=== PATIENT | female | born 1985 | race Caucasian/White ===

== ENCOUNTER 2017-05-25 08:49 | Inpatient (IN) | payer OTHER ==
[2017-05-25 09:00] VITALS: BMI 34.6
[2017-05-25] MEDS ORDERED: CEFTRIAXONE 1,000 MG in DEXTROSE 5%-WATER - 50 ML IVPB ONE (09:47)
[2017-05-25] MEDS ORDERED: ONDANSETRON 4 MG/2 ML VIAL IVPB ONE (09:48)
[2017-05-25] MEDS ORDERED: SODIUM CHLORIDE 0.9% 1000 ML INFUS.BAG IV ONE (09:48)
[2017-05-25] MEDS ORDERED: morphine CARPU-JECT 4 MG/1 ML DISP.SYRIN IVPUSH ONE (09:48)
[2017-05-25] MEDS ORDERED: KETOROLAC TROMETHAMINE 60 MG/2 ML VIAL IVPB ONE (09:49)
--- NOTE | 2017-05-25 09:56 | PDOC ---
History of Present Illness - General History Source: Patient Exam Limitations: No Limitations - History of Present Illness Initial Comments: 05/25/17 09:51 Patient is a 31-year-old female, otherwise healthy, denies any significant medical history currently on no medication presents for evaluation of right ear pain, described as stabbing 10 out of 10. Patient states 2 weeks ago she went to the beach, did have slight pain to right ear prior to that however after attending the [place] pain became worse was seen by her PMD and told that she had no infection. Currently afebrile. Past Medical History: Denies. Allergies: No known allergies Medications: None Family History: Non-contributory Social History: Denies smoking, alcohol use, or IVDU Review of Systems GENERAL/CONSTITUTIONAL: No fever or chills. No weakness. No weight change. HEAD, EYES, EARS, NOSE AND THROAT: No change in vision. Right ear and face pain , no discharge. No sore throat. CARDIOVASCULAR: No chest pain or shortness of breath. RESPIRATORY: No cough, wheezing, or hemoptysis. GASTROINTESTINAL: No nausea, vomiting, diarrhea or constipation. No rectal bleeding. GENITOURINARY: No dysuria, frequency, or change in urination. MUSCULOSKELETAL: No joint or muscle swelling or pain. No neck or back pain. SKIN AND BREASTS: No rash or easy bruising. NEUROLOGIC: No headache, vertigo, loss of consciousness, or loss of sensation. PSYCHIATRIC: No depression or anxiety. ENDOCRINE: No increased thirst. No abnormal weight change. HEMATOLOGIC/LYMPHATIC: No anemia, easy bleeding, or history of blood clots. ALLERGIC/IMMUNOLOGIC: No hives or skin allergy. No latex allergy. Physical Exam: GENERAL: The patient is awake, alert, and fully oriented, in no acute distress. HEAD/FACE: Normal with no signs of trauma. Right-sided facial edema with erythema, painful to touch right frontal sinus and right ethmoid sinus EYES: Pupils equal, round and reactive to light, extraocular movements intact, sclera anicteric, conjunctiva clear. ENT: Erythematous and pustulant ear canal on right, left TM visible no erythema or edema, nares patent, oropharynx clear without exudates. Moist mucous membranes. No uvula deviation NECK: Normal range of motion, supple without lymphadenopathy, JVD, or masses. LUNGS: Breath sounds equal, clear to auscultation bilaterally. No wheezes, and no crackles. HEART: Regular rate and rhythm, normal S1 and S2 without murmur, rub or gallop. ABDOMEN: Soft, nontender, normoactive bowel sounds. No guarding, no rebound. No masses. No bruising or abrasions MUSCULOSKELETAL: Normal range of motion, no edema. No clubbing or cyanosis. No cords, erythema, or tenderness. No CVA Tenderness with fist. NEUROLOGICAL: Cranial nerves II through XII grossly intact. Normal speech, normal gait. SKIN: Warm, Dry, normal turgor, no rashes or lesions noted. Erythema to right side of face from forehead to chin. <Eboni Street - Last Filed: 05/25/17 12:26> <Desmond Veras - Last Filed: 05/25/17 12:52> - General Chief Complaint: Ear Problem Stated Complaint: EAR PROBLEM Time Seen by Provider: 05/25/17 09:24 Past History - Past Medical History Other medical history: PT DENIES - Immunization History Immunization Up to Date: Yes - Psycho/Social/Smoking Cessation Hx Anxiety: No Suicidal Ideation: No Smoking History: Never smoked Have you smoked in the past 12 months: No Information on smoking cessation initiated: No Hx Alcohol Use: No Drug/Substance Use Hx: No Substance Use Type: None <Eboni Street - Last Filed: 05/25/17 12:26> <Desmond Veras - Last Filed: 05/25/17 12:52> - Past Medical History Allergies/Adverse Reactions: Allergies Allergy/AdvReac Type Severity Reaction Status Date / Time No Known Allergies Allergy Verified 05/25/17 08:55 Home Medications: Ambulatory Orders NK [No Known Home Medication] 05/25/17 *Physical Exam - Vital Signs Last Vital Signs Temp Pulse Resp BP Pulse Ox 98.1 F 76 17 113/76 97 05/25/17 08:55 05/25/17 08:55 05/25/17 08:55 05/25/17 08:55 05/25/17 08:[address] <[address] - Last Filed: 05/25/17 12:26> - Vital Signs Last Vital Signs Temp Pulse Resp BP Pulse Ox 98.1 F 76 17 113/76 97 05/25/17 08:55 05/25/17 08:55 05/25/17 08:55 05/25/17 08:55 05/25/17 08:55 <Desmond Veras - Last Filed: 05/25/17 12:52> ED Treatment Course - RADIOLOGY Radiology Studies Ordered: Category Date Time Status SINUS CT W/O CONTRAST [CT] Stat CT Scan 05/25/17 09:50 Ordered <Eboni Street - Last Filed: 05/25/17 12:26> - LABORATORY CBC & Chemistry Diagram: 05/25/17 09:50 05/25/17 09:50 - ADDITIONAL ORDERS Additional order review: Laboratory Results 05/25/17 05/25/17 05/25/17 10:00 10:00 09:50 Sodium 138 Potassium 4.2 Chloride 106 Carbon Dioxide 26 Anion Gap 6 L BUN 11 D Creatinine 0.5 L D Creat Clearance w eGFR > 60 Random Glucose 95 Lactic Acid 1.5 Calcium 9.2 Total Bilirubin 0.4 AST 14 L D ALT 33 D Alkaline Phosphatase 83 Total Protein 7.4 Albumin 4.0 Urine Color Ltyellow Urine Appearance Slcloudy Urine pH 6.0 Urine Protein Negative Urine Glucose (UA) Negative Urine Ketones Negative Urine Blood 1+ H Urine Nitrite Negative Urine Bilirubin Negative Urine Urobilinogen Negative Ur Leukocyte Esterase Trace Urine RBC 1 Urine WBC 2 Ur Epithelial Cells Moderate Urine Mucus Rare Urine HCG, Qual Negative 05/25/17 09:50 RBC 4.56 MCV 89.9 MCHC 34.5 RDW 12.8 MPV 8.0 Neutrophils % 73.5 Lymphocytes % 20.1 D Monocytes % 5.5 Eosinophils % 0.7 D Basophils % 0.2 - Medications Given in the ED: ED Medications Discontinued Medications Generic Name Dose Route Start Last Admin Trade Name Chayq PRN Reason Stop Dose Admin Diphenhydramine HCl 50 mg 05/25/17 12:12 05/25/17 12:35 Benadryl Injection - IVPB 05/25/17 12:13 50 mg ONCE ONE Administration Ceftriaxone Sodium 1,000 mg/ 50 mls @ 100 mls/hr 05/25/17 09:47 05/25/17 10:28 Dextrose IVPB 05/25/17 10:16 100 mls/hr ONCE ONE Administration Famotidine/Sodium Chloride 50 mls @ 100 mls/hr 05/25/17 12:12 05/25/17 12:35 Pepcid 20 Mg Premixed Ivpb - IVPB 05/25/17 12:41 100 mls/hr ONCE ONE Administration Famotidine/Sodium Chloride 50 mls @ 100 mls/hr 05/25/17 12:13 05/25/17 12:35 Pepcid 20 Mg Premixed Ivpb - IVPB 05/25/17 12:42 Not Given ONCE ONE Ketorolac Tromethamine 30 mg 05/25/17 09:49 05/25/17 10:20 Toradol Injection - IVPB 05/25/17 09:50 30 mg ONCE ONE Administration Methylprednisolone Sodium Succinate 125 mg 05/25/17 12:12 05/25/17 12:35 Solu-Medrol - IVPB 05/25/17 12:13 125 mg ONCE ONE Administration Morphine Sulfate 4 mg 05/25/17 09:48 05/25/17 10:25 Morphine Injection - IVPUSH 05/25/17 09:49 4 mg ONCE ONE Administration Ondansetron HCl 4 mg 05/25/17 09:48 05/25/17 10:15 Zofran Injection IVPB 05/25/17 09:49 4 mg ONCE ONE Administration Sodium Chloride 1,000 ml 05/25/17 09:48 05/25/17 10:20 Normal Saline - IV 05/25/17 09:49 1,000 ml ONCE ONE Administration <Desmond Veras - Last Filed: 05/25/17 12:52> Medical Decision Making - Medical Decision Making 05/25/17 10:01 A/P: Patient with right otitis externa, with facial cellulitis will be sent to main emergency department for higher level of care under the care of Dr. Veras. Plan: Saline lock, CBC, CMP, lactic acid Saline bolus CT sinuses Blood cultures, urinalysis, urine , and urine culture Zofran 4 mg IV, Rocephin 1 g, morphine 4 mg IV, Toradol 30 mg IV. Patient was initially triaged to [facility]. After review of the history of present illness and physical examination by Nurse Practitioner, the patient was transferred to the main ED for higher lever of care. The patient is medically stable for transfer. 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
[2017-05-25] MEDS ORDERED: ONDANSETRON 4 MG/2 ML VIAL ONE (10:14)
[2017-05-25] MEDS ORDERED: KETOROLAC TROMETHAMINE 30 MG/1 ML VIAL ONE (10:14)
[2017-05-25] MEDS ORDERED: morphine CARPU-JECT 4 MG/1 ML DISP.SYRIN ONE (10:14)
[2017-05-25] MEDS ORDERED: CEFTRIAXONE 50 ML ONE (10:15)
[2017-05-25 10:18] LABS: BASOPHIL 0.2 % (0-2.0); EOSINOPHIL 0.7 % (0-4.5); MCHC 34.5 g/dl (32.0-36.0); MEAN CELL VOLUME 89.9 fl (80-96); NEUTROPHILS 73.5 % (42.8-82.8); PLATELET COUNT 376 K/MM3 (134-434); RDW 12.8 % (11.6-15.6); WHITE BLOOD COUNT 9.4 K/mm3 (4.0-10.0)
[2017-05-25 10:20] LABS: URINE APPEARANCE SLCLOUDY; URINE BILIRUBIN NEGATIVE (NEGATIVE); URINE BLOOD 1+ (NEGATIVE); URINE COLOR LTYELLOW; URINE GLUCOSE (UA) NEGATIVE (NEGATIVE); URINE KETONE NEGATIVE (NEGATIVE); URINE LEUK ESTERASE TRACE (NEGATIVE); URINE NITRITE NEGATIVE (NEGATIVE); URINE PROTEIN NEGATIVE (NEGATIVE); URINE UROBILINOGEN NEGATIVE mg/dL (0.2-1.0)
[2017-05-25 10:22] LABS: URINE MUCUS RARE; URINE RBC 1 /hpf (0-3); URINE WBC 2 /hpf (3-5)
[2017-05-25 10:48] LABS: ALK PHOS 83 U/L (45-117); ANION GAP 6 (8-16); BILIRUBIN,TOTAL 0.4 mg/dL (0.2-1.0); CALCIUM 9.2 mg/dL (8.5-10.1); CO2 26 mmol/L (21-32); CREATININE 0.5 mg/dL (0.55-1.02); GLUCOSE,RANDOM 95 mg/dL (74-106); SGOT/AST 14 U/L (15-37); SGPT/ALT 33 U/L (12-78); TOT PROT 7.4 g/dl (6.4-8.2)
[2017-05-25] MEDS ORDERED: FAMOTIDINE 20 MG/50 ML IVPB 50 ML IVPB ONE ×3 (12:12→12:13)
[2017-05-25] MEDS ORDERED: methylPREDNISolone NA SUCC 125 MG/2 ML VIAL IVPB ONE (12:12)
[2017-05-25] MEDS ORDERED: methylPREDNISolone NA SUCC 125 MG/2 ML VIAL ONE ×2 (12:13→12:18)
[2017-05-25] MEDS ORDERED: ALBUTEROL SO4 0.083% IH SOL 2.5 MG/3 ML VIAL.NEB. NEB ONE ×2 (12:42→12:44)
[2017-05-25] MEDS ORDERED: EPINEPHrine/PF 1 MG/1 ML (1:1,000) AMPULE ONE (12:43)
[2017-05-25] MEDS ORDERED: CIPROFLOXACIN 400 MG/D5W 200 ML IVPB ONE (12:44)
[2017-05-25] MEDS ORDERED: CLINDAMYCIN PHOSPHATE 600 MG/4 ML VIAL ONE (12:55)
--- NOTE | 2017-05-25 13:50 | HP ---
CHIEF COMPLAINT: EAR PAIN PCP: NONE HISTORY OF PRESENT ILLNESS: 31 Yo F with no significant PMhx presents with two week history of ear pain. Pain started 2 weeks ago and was dull in nature with minor hearing loss. Pain has progressed to become stabbing 10/10 pain that radiates to right side of face. Pain is worse with palpation and no alleviating factors. It is associated with hearing loss. She states she can still hear but sounds are muffled. She had gone to [address] [place] [address] on Friday (05/21/17) and told she did not have infection and no treatment was initiated. She does endorses subjective fevers, chills and diaphoresis. There was some discussion in previous notes about going to the beach last week but she states she did not go in water she just wet her feet, therefore unsure of clinical significance. She denies CP,SOB, palpitations, abd.pain, N/V, or urinary symptoms. ER course was notable for: (1)Given Ceftriaxone x1 with adverse rxn.(SOB and generalized hives) --> given solumedrol 125mg IV and albuterol (2)ID consulted and Abx switched to Ciprofloxacin 400mg IV (3) Recent Travel: Denies PAST MEDICAL HISTORY: NONE PAST SURGICAL HISTORY: Right eye surgery 2 yrs ago (unclear as to what surgery or for what) Social History: Smoking: Never smoked Alcohol:denies Drugs: denies Family History: Allergies ceftriaxone sodium [From Rocephin] Allergy (Severe, Verified 05/25/17 13:18) Hives HOME MEDICATIONS: Home Medications Medication Instructions Recorded NK [No Known Home Medication] 05/25/17 REVIEW OF SYSTEMS CONSTITUTIONAL: chills, diaphoresis Absent: fever, , generalized weakness, malaise, loss of appetite, weight change HEENT: ear pain & Decreased hearing of Right ear Absent: rhinorrhea, nasal congestion, throat pain, throat swelling, difficulty swallowing, mouth swelling, , eye pain, visual changes CARDIOVASCULAR: Absent: chest pain, syncope, palpitations, irregular heart rate, lightheadedness , peripheral edema RESPIRATORY: Absent: cough, shortness of breath, dyspnea with exertion, orthopnea, wheezing, stridor, hemoptysis GASTROINTESTINAL: Absent: abdominal pain, abdominal distension, nausea, vomiting, diarrhea, constipation, melena, hematochezia GENITOURINARY: Absent: dysuria, frequency, urgency, hesitancy, hematuria, flank pain, genital pain MUSCULOSKELETAL: Absent: myalgia, arthralgia, joint swelling, back pain, neck pain SKIN: Absent: rash, itching, pallor HEMATOLOGIC/IMMUNOLOGIC: Absent: easy bleeding, easy bruising, lymphadenopathy, frequent infections ENDOCRINE: Absent: unexplained weight gain, unexplained weight loss, heat intolerance, cold intolerance NEUROLOGIC: Absent: headache, focal weakness or paresthesias, dizziness, unsteady gait, seizure, mental status changes, bladder or bowel incontinence PSYCHIATRIC: Absent: anxiety, depression, suicidal or homicidal ideation, hallucinations. PHYSICAL EXAMINATION Vital Signs - 24 hr 05/25/17 13:30 Pulse Rate [ 76 Apical] Respiratory 22 Rate Blood Pressure 121/73 [Left Arm] O2 Sat by Pulse 97 Oximetry (%) GENERAL: AAOx3. mild distress HEAD: AT/NC. Right sided facial erythema-Improved. EYES: PERRLA,EOMI sclera anicteric, conjunctiva clear. No lid lag. EARS, NOSE, THROAT: Right ear with erythema and swelling. , nares patent, oropharynx clear without exudates. Moist mucous membranes. NECK:decreased ROM, supple without lymphadenopathy, JVD, or masses. LUNGS: CTAB. No wheezes, and no crackles. No accessory muscle use. HEART: RRR, normal S1 and S2 without murmur, rub or gallop. ABDOMEN: Soft, nontender, not distended, normoactive bowel sounds, no guarding, no rebound, no masses. No hepatomegaly or splenomegaly. MUSCULOSKELETAL: Normal range of motion at all joints. No bony deformities or tenderness. No CVA tenderness. UPPER EXTREMITIES: 2+ pulses, warm, well-perfused. No cyanosis. No clubbing. No peripheral edema. LOWER EXTREMITIES: 2+ pulses, warm, well-perfused. No calf tenderness. No peripheral edema. NEUROLOGICAL: Cranial nerves II-XII intact. Normal speech.gait not observed. PSYCHIATRIC: Cooperative. Good eye contact. Appropriate mood and affect. SKIN: facial erythema from midline of face to right ear. ASSESSMENT/PLAN: 31 yo F with no significant pmhx admitted to med-surg for facial cellulitis. Problem List - Problem (1) Facial cellulitis Assessment/Plan: * ID consult appreciated. * Will give 200mg IV Ciprofloxacin Q12h * She had allergic rxn of hives and SOB with Ceftriaxone and received 125 mg IV solumedrol and Albuterol In ED * Facial redness has improved somewhat. * Will repeat CBC and BMP in AM Visit type - Emergency Visit Emergency Visit: Yes ED Registration Date: 05/25/17 Care time: The patient presented to the Emergency Department on the above date and was hospitalized for further evaluation of their emergent condition. - New Patient This patient is new to me today: Yes Date on this admission: 05/26/17 - Critical Care Critical Care patient: No
[2017-05-25] MEDS ORDERED: ACETAMINOPHEN INJECTION 100 ML IVPB ONE (13:52)
[2017-05-25] MEDS ORDERED: ACETAMINOPHEN 1000 MG/100 ML VIAL (NON FORMULARY) IVPB ONE (13:52)
--- NOTE | 2017-05-25 14:15 | CONSULT ---
Consult Consult Specialty:: INFECTIOUS DISEASE Reason for Consultation:: Ear pain possible Otitis - History of Present Illness Chief Complaint: Rt ear pain with decreased hearing History of Present Illness: 31 y.o. female presenting with severe Rt ear pain that began 2 weeks ago. Patient (bhutanese-speaking, history obtained via translation) states that pain has gotten worse and she is able to hear less from that side. She went to outpatient urgent care facility but was not prescribed anything. She reports going to the beach one week ago but symptoms began prior to that. Pt denies any fever, chills, headache, visual disturbance. In ER patient was given a dose of Ceftriaxone but developed hives noted on face and c/o shortness of breath. - History Source History Provided By: Patient, Family Member Limitations to Obtaining History: No Limitations - Past Medical History ...: No (IUD) ENT: Yes: Other Dermatology: Yes: Other (hives noted post dose of Ceftriaxone) - Alcohol/Substance Use Hx Alcohol Use: No - Smoking History Smoking history: Never smoked Have you smoked in the past 12 months: No - Social History ADL: Independent Home Medications - Allergies Allergies/Adverse Reactions: Allergies Allergy/AdvReac Type Severity Reaction Status Date / Time ceftriaxone sodium Allergy Severe Hives Verified 05/25/17 13:18 [From Rocephin] - Home Medications Home Medications: Ambulatory Orders NK [No Known Home Medication] 05/25/17 Review of Systems - Review of Systems HENT: reports: Ear Pain (Right ear, with decreased hearing), Other (no dental pain) Neck: reports: No Symptoms Cardiovascular: reports: No Symptoms Gastrointestinal: reports: No Symptoms Genitourinary: reports: No Symptoms Breasts: reports: No Symptoms Reported Physical Exam Vital Signs: Vital Signs Temperature 98.1 F 05/25/17 08:55 Pulse Rate 72 05/25/17 13:47 Respiratory Rate 16 05/25/17 13:47 Blood Pressure 121/73 05/25/17 13:47 O2 Sat by Pulse Oximetry (%) 100 05/25/17 13:47 Constitutional: Yes: Other HENT: Yes: Other (Rt ear without clear purulent drainage or erythema. No external lesions) Neck: Yes: Supple Cardiovascular: Yes: Regular Rate and Rhythm Respiratory: Yes: CTA Bilaterally Gastrointestinal: Yes: WNL, Normal Bowel Sounds Integumentary: Yes: Other (mild Rt facial edema/hives) Imaging - Results Cat Scan: Report Reviewed Problem List - Problems (1) Otitis Code(s): H66.90 - OTITIS MEDIA, UNSPECIFIED, UNSPECIFIED EAR (2) Allergic reaction caused by a drug Code(s): T78.40XA - ALLERGY, UNSPECIFIED, INITIAL ENCOUNTER (3) Hives Code(s): L50.9 - URTICARIA, UNSPECIFIED Assessment/Plan - suggest Cipro 400 mg IV Q12h for now - follow up culture results - monitor for worsening allergic symptoms Pt will be followed up by Dr Johnson
--- NOTE | 2017-05-25 18:57 | PN ---
Teaching Attending Note Name of Resident: Dean Brito ATTENDING PHYSICIAN STATEMENT I saw and evaluated the patient. I reviewed the resident's note and discussed the case with the resident. I agree with the resident's findings and plan as documented. SUBJECTIVE: Patient is c/o having right sided facial pain, having difficulty with chewing her food. OBJECTIVE: Vital Signs Temperature 98.4 F 05/25/17 16:54 Pulse Rate 81 05/25/17 16:54 Respiratory Rate 20 05/25/17 16:54 Blood Pressure 107/79 05/25/17 16:54 O2 Sat by Pulse Oximetry (%) 94 L 05/25/17 16:54 CBCD WBC 9.4 K/mm3 (4.0-10.0) D 05/25/17 09:50 RBC 4.56 M/mm3 (3.60-5.2) 05/25/17 09:50 Hgb 14.1 GM/dL (10.7-15.3) 05/25/17 09:50 Hct 41.0 % (32.4-45.2) 05/25/17 09:50 MCV 89.9 fl (80-96) 05/25/17 09:50 MCHC 34.5 g/dl (32.0-36.0) 05/25/17 09:50 RDW 12.8 % (11.6-15.6) 05/25/17 09:50 Plt Count 376 K/MM3 (134-434) 05/25/17 09:50 MPV 8.0 fl (7.5-11.1) 05/25/17 09:50 CMP Sodium 138 mmol/L (136-145) 05/25/17 09:50 Potassium 4.2 mmol/L (3.5-5.1) 05/25/17 09:50 Chloride 106 mmol/L (98-107) 05/25/17 09:50 Carbon Dioxide 26 mmol/L (21-32) 05/25/17 09:50 Anion Gap 6 (8-16) L 05/25/17 09:50 BUN 11 mg/dL (7-18) D 05/25/17 09:50 Creatinine 0.5 mg/dL (0.55-1.02) L D 05/25/17 09:50 Creat Clearance w eGFR > 60 (>60) 05/25/17 09:50 Random Glucose 95 mg/dL (74-106) 05/25/17 09:50 Calcium 9.2 mg/dL (8.5-10.1) 05/25/17 09:50 Total Bilirubin 0.4 mg/dL (0.2-1.0) 05/25/17 09:50 AST 14 U/L (15-37) L D 05/25/17 09:50 ALT 33 U/L (12-78) D 05/25/17 09:50 Alkaline Phosphatase 83 U/L (45-117) 05/25/17 09:50 Total Protein 7.4 g/dl (6.4-8.2) 05/25/17 09:50 Albumin 4.0 g/dl (3.4-5.0) 05/25/17 09:50 Current Medications Generic Name Dose Route Start Last Admin Trade Name Freq PRN Reason Stop Dose Admin Enoxaparin Sodium 40 mg 05/26/17 10:00 Lovenox - SQ DAILY CARLIE Ciprofloxacin/Dextrose 200 mls @ 200 mls/hr 05/25/17 22:00 Cipro 400 Mg Premix Ivpb (Restricted To Id) IVPB BID CARLIE Vancomycin HCl 250 mls @ 250 mls/hr 05/25/17 22:00 Vancomycin (Pre-Docked) IVPB BID [facility] Protocol Neomycin/Polymyxin/Hydrocortisone 4 drop 05/25/17 18:00 Cortisporin Otic Solution - AD Q6HPO [facility] Home Medications Medication Instructions Recorded NK [No Known Home Medication] 05/25/17 HEENT: right sided facial swelling. Rest PE: as per resident's note. ASSESSMENT AND PLAN: 31 yo F with no significant pmhx admitted to med-surg for facial cellulitis. # Acute Facial cellulitis with otitis media; ID consult appreciated. ; Cipro 400mg IV Ciprofloxacin Q12h ; Cortisporin otic ear drops 4 drops 4x per day. Patient had a allergic rxn post Rocephin IV in ED. developed hives and SOB. Given 125 mg IV solumedrol and Albuterol In ED, ENT consult Dr.Tom Tinsley # Acute allergic reaction to IV Rocephin: Solu medrol 40mg q8 IV, banadryl prn. # Acute Otitis Media on Cortisporin otic 4drops 4x per day. DVT Px: Lovenox
[2017-05-25] MEDS: VANCOMYCIN 1 GRAM (PRE-DOCKED) 250 ML IVPB SCH (21:26)
[2017-05-25] MEDS: SODIUM CHLORIDE 0.45% 1,000 ML IV SCH (21:26)
[2017-05-25] MEDS ORDERED: CIPROFLOXACIN 200 MG/D5W 100 ML IVPB SCH (22:00)
[2017-05-25] MEDS ORDERED: CIPROFLOXACIN 400 MG/D5W 200 ML IVPB SCH (22:00)
[2017-05-26] MEDS: NEOMYCIN/POLYMYXN/HC OTIC SOLUTION 10 ML BOTTLE AD SCH ×5 (00:41→19:18)
[2017-05-26] MEDS: methylPREDNISolone NA SUCC 40 MG/1 ML VIAL IVPB SCH ×3 (01:00→17:52)
[2017-05-26] MEDS: AZTREONAM 1 GM in DEXTROSE 5%-WATER - 50 ML IVPB SCH ×3 (01:38→17:35)
[2017-05-26] MEDS ORDERED: PT OWN MED DRAWER 7, Y5N ONE ×3 (06:01→16:37)
[2017-05-26 07:54] LABS: BASOPHIL 0.1 % (0-2.0); MCHC 34.5 g/dl (32.0-36.0); MEAN CELL VOLUME 89.8 fl (80-96); MEAN PLT VOLUME 8.3 fl (7.5-11.1); NEUTROPHILS 90.2 % (42.8-82.8); PLATELET COUNT 361 K/MM3 (134-434); RDW 12.9 % (11.6-15.6); WHITE BLOOD COUNT 13.4 K/mm3 (4.0-10.0)
[2017-05-26 08:18] LABS: ALBUMIN 3.3 g/dl (3.4-5.0); ANION GAP 6 (8-16); CALCIUM 8.6 mg/dL (8.5-10.1); CO2 25 mmol/L (21-32); CREATININE 0.5 mg/dL (0.55-1.02); GLUCOSE,RANDOM 132 mg/dL (74-106); PHOSPHOROUS 3.2 mg/dL (2.5-4.9); SGOT/AST 14 U/L (15-37); SGPT/ALT 40 U/L (12-78)
[2017-05-26 08:20] LABS: ALK PHOS 74 U/L (45-117); BILIRUBIN,TOTAL 0.7 mg/dL (0.2-1.0); TOT PROT 6.3 g/dl (6.4-8.2)
[2017-05-26] MEDS ORDERED: ACETAMINOPHEN 325 MG TABLET (FP) PO ONE (08:36)
--- NOTE | 2017-05-26 08:51 | PN ---
Physical Exam: SUBJECTIVE: Patient seen and examined this AM. Still complains of R ear pain, states R facial pain has improved. No CP, no SOB, no fevers, no chills. OBJECTIVE: Vital Signs Period Temp Pulse Resp BP Sys/Rocha Pulse Ox Last 24 Hr 98.4 F-98.7 F 66-81 16-22 105-121/53-79 94-100 GENERAL: AAO x 3, NAD HEENT: PERRLA, EOMi, TTP in L jaw, improved redness + swelling of face R EAR: Erythematous, inflammed tympanic membranes, tender on exam L Ear: Clear tympanic membrane, no bulging, no redness CV: S1, S2, RRR, no murmur LUNG: CTABL, no labored breathing MSK: 2+ pulses, no edema Neuro: CN 2-12 intact, sensation equal/intact face + body, MSK 5/5, reflexes 2+ Laboratory Results - last 24 hr 05/26/17 05/26/17 06:00 06:00 WBC 13.4 H D RBC 4.22 Hgb 13.1 Hct 37.9 MCV 89.8 MCH 31.0 MCHC 34.5 RDW 12.9 Plt Count 361 MPV 8.3 Neutrophils % 90.2 H D Lymphocytes % 8.3 D Monocytes % 1.4 L Eosinophils % 0.0 D Basophils % 0.1 Sodium 138 Potassium 4.1 Chloride 107 Carbon Dioxide 25 Anion Gap 6 L BUN 7 D Creatinine 0.5 L Creat Clearance w eGFR > 60 Random Glucose 132 H D Calcium 8.6 Phosphorus 3.2 Magnesium 2.0 Total Bilirubin 0.7 D AST 14 L ALT 40 D Alkaline Phosphatase 74 Total Protein 6.3 L Albumin 3.3 L Active Medications Generic Name Dose Route Start Last Admin Trade Name Freq PRN Reason Stop Dose Admin Diphenhydramine HCl 25 mg 05/25/17 19:08 Benadryl Injection - IVPUSH Q6H PRN FOR ITCHING Enoxaparin Sodium 40 mg 05/26/17 10:00 Lovenox - SQ DAILY CARLIE Vancomycin HCl 250 mls @ 250 mls/hr 05/25/17 22:00 05/25/17 21:26 Vancomycin (Pre-Docked) IVPB 250 mls/hr BID CARLIE Administration Protocol Sodium Chloride 1,000 mls @ 125 mls/hr 05/25/17 19:15 05/25/17 21:26 1/2 Normal Saline IV 125 mls/hr ASDIR CARLIE Administration Aztreonam 1 gm/ Dextrose 50 mls @ 100 mls/hr 05/26/17 02:00 05/26/17 01:38 IVPB 100 mls/hr Q8H-IV CARLIE Administration Protocol Methylprednisolone Sodium Succinate 40 mg 05/26/17 02:00 05/26/17 01:00 Solu-Medrol - IVPB 40 mg Q8H-IV CARLIE Administration Neomycin/Polymyxin/Hydrocortisone 4 drop 05/25/17 18:00 05/26/17 05:45 Cortisporin Otic Solution - AD 4 drop Q6HPO CARLIE Administration ASSESSMENT/PLAN: Pt is a 31yo F without significant PMHx who presented with 2 weeks of 10/10 stabbing R ear pain w/ R sided facial swelling and redness. She had gone to the beach which had made her ear pain worse. CT soft tissue in ER showed minimal soft tissue swelling over R face without abscess. She was given Ceftriaxone in the ED which caused her to have hievs and SOB. She was later switched to Cipro + Vanc. # Acute Otitis Infection - Will need to do proper examination to assess tympanic membrane - In ED she had erythematous purulent canal - Continue Corticosporin ear drops - Await ENT reccs # Facial Cellulitis - Improved - Continue Ciprofloxacin 400mg IV Q12 - Continue Vancomycin 1g IV Q12 - F/u ID reccs # FEN - Fluids: None - Electrolytes: Monitor - Nutrition: Chopped diet # Prophylaxis - DVT: Lovenox 40mg SQ QD - good renal function - GI: Not indicated - Deconditioning: Ambulating # Disposition - New white count, continue abx - Await ENT reccs, d/c when pain improves Visit type - Emergency Visit Emergency Visit: No - New Patient This patient is new to me today: No - Critical Care Critical Care patient: No
[2017-05-26] MEDS: SODIUM CHLORIDE 0.45% 1,000 ML IV SCH ×2 (08:54→19:43)
[2017-05-26] MEDS: ENOXAPARIN NA (PORCINE) 40 MG/0.4 ML DISP.SYRIN SQ SCH (09:01)
[2017-05-26] MEDS: VANCOMYCIN 1 GRAM (PRE-DOCKED) 250 ML IVPB SCH ×2 (09:02→22:57)
--- NOTE | 2017-05-26 12:13 | PN ---
Progress Note, Physician History of Present Illness: patient evaluated family in room patient mentions that the swelling is much better still has pain when pinna is retracted according to the patient she does feel much better - Current Medication List Current Medications: Active Medications Diphenhydramine HCl (Benadryl Injection -) 25 mg IVPUSH Q6H PRN PRN Reason: FOR ITCHING Enoxaparin Sodium (Lovenox -) 40 mg SQ DAILY [facility] Last Admin: 05/26/17 09:01 Dose: 40 mg Vancomycin HCl (Vancomycin (Pre-Docked)) 250 mls @ 250 mls/hr IVPB BID [facility]IE PRN Reason: Protocol Last Admin: 05/26/17 09:02 Dose: 250 mls/hr Sodium Chloride (1/2 Normal Saline) 1,000 mls @ 125 mls/hr IV ASDIR [facility] Last Admin: 05/26/17 08:54 Dose: 125 mls/hr Aztreonam 1 gm/ Dextrose 50 mls @ 100 mls/hr IVPB Q8H-IV [facility]LIE PRN Reason: Protocol Last Admin: 05/26/17 10:20 Dose: 100 mls/hr Methylprednisolone Sodium Succinate (Solu-Medrol -) 40 mg IVPB Q8H-IV [facility] Last Admin: 05/26/17 09:02 Dose: 40 mg Neomycin/Polymyxin/Hydrocortisone (Cortisporin Otic Solution -) 4 drop AD Q6HPO [facility] Last Admin: 05/26/17 05:45 Dose: 4 drop - Objective Vital Signs: Vital Signs Temperature 98.6 F 05/26/17 09:00 Pulse Rate 80 05/26/17 09:00 Respiratory Rate 17 05/26/17 09:00 Blood Pressure 111/64 05/26/17 09:00 O2 Sat by Pulse Oximetry (%) 92 L 05/26/17 09:00 Constitutional: Yes: No Distress, Calm, Obese HENT: Yes: Other (rt ear pain facial cellulitits) Cardiovascular: Yes: Regular Rate and Rhythm Respiratory: Yes: Regular, CTA Bilaterally Gastrointestinal: Yes: Normal Bowel Sounds, Soft Musculoskeletal: Yes: WNL Extremities: Yes: WNL Integumentary: Yes: Erythema (facial cellulitits) Neurological: Yes: Alert, Oriented Psychiatric: Yes: Alert Labs: CBC, BMP 05/26/17 06:00 05/26/17 06:00 Assessment/Plan Problem List - Problems (1) Otitis Code(s): H66.90 - OTITIS MEDIA, UNSPECIFIED, UNSPECIFIED EAR (2) Allergic reaction caused by a drug Code(s): T78.40XA - ALLERGY, UNSPECIFIED, INITIAL ENCOUNTER (3) Hives Code(s): L50.9 - URTICARIA, UNSPECIFIED 4 facial cellulitits rt side plan we will continue current mgmt await for ent to see the patient continue abx rest as per primary
[2017-05-26] MEDS ORDERED: ACETAMINOPHEN 325 MG TABLET (FP) PO PRN (17:32)
--- NOTE | 2017-05-26 18:15 | CON.ENT ---
Consult Consult Specialty:: ENT Referred by:: Dr. Brito Reason for Consultation:: hearing loss, ear pain - History of Present Illness Chief Complaint: right ear pain History of Present Illness: 31 yo F admitted, c/o right ear pain and hearing loss on topical eardrops but pain persists on systemic antibiotics symptoms for ~2 weeks but did not seek medical attention until presented to [facility] 1 day ago. nasal congestion, does not recall specific sinus infections facial pain present - History Source History Provided By: Patient, Medical Record Limitations to Obtaining History: No Limitations - Past Medical History ...: No (IUD) ENT: Yes: Other Dermatology: Yes: Other (hives noted post dose of Ceftriaxone) - Alcohol/Substance Use Hx Alcohol Use: No - Smoking History Smoking history: Never smoked Have you smoked in the past 12 months: No - Social History ADL: Independent Home Medications - Allergies Allergies/Adverse Reactions: Allergies Allergy/AdvReac Type Severity Reaction Status Date / Time ceftriaxone sodium Allergy Severe Hives Verified 05/25/17 13:18 [From Rocephin] - Home Medications Home Medications: Ambulatory Orders NK [No Known Home Medication] 05/25/17 Physical Exam-ENT Vital Signs: Vital Signs Temperature 97.8 F 05/26/17 14:39 Pulse Rate 77 05/26/17 14:39 Respiratory Rate 20 05/26/17 14:39 Blood Pressure 119/65 05/26/17 14:39 O2 Sat by Pulse Oximetry (%) 92 L 05/26/17 09:00 Constitutional: Yes: Well Nourished, No Distress, Calm Head: Yes: WNL Face: Yes: WNL Eyes: Yes: WNL Nose: Yes: Septum Deviated Nasal Passage: Yes: Other (nasal endoscopy: inferior turbinates mild edema, middle meati narrow, no pus or polyp, middle turbinates sl edema; superior turbinates/meati not visualized, sphenoethmoid recesses not visualized) Oral/Pharynx: Yes: WNL Outer Ear: Yes: Drainage Ear Canal: Yes: Drainage (right ear canal clear to serous drainage) Tympanic Membrane: Yes: Other (not visualized right because of medial fluid and canal swelling) Neck: Yes: WNL Respiratory: Yes: WNL Neurological: Yes: Alert, Oriented Imaging - Results Cat Scan: Report Reviewed, Image Reviewed (CT scan of sinuses: +deviated septum ; left maxillary sinusitis with mucoperiosteal thickening. coronal views demonstrate edema of right external auditory canal, also fluid middle ear and masotid right (less developed)) Assessment and Plan-Medical Impression: Impression: right ear pain and hearing loss right otitis externa and otorrhea, also otomastoiditis on CT scan because of ear canal narrowing eardrops are less effective ear wick placed continue eardrops remove wick in 2-3 days as pain improves will need audiogram in office after discharge to assess hearing levels, assume most of her hearing loss is related to current infection and fluid/ swelling but need audiogram to assess her inner ear cochlear function deviated septum/chronic maxillary sinusitis no pus or polyp continue antibiotics nasal saline spray advised follow-up in office after discharge for further work-up Thank you for consultation: Laureano Mcgill MD FACS
[2017-05-26] MEDS ORDERED: KETOROLAC TROMETHAMINE 30 MG/1 ML VIAL IVPUSH ONE (19:52)
--- NOTE | 2017-05-26 20:11 | PN ---
Teaching Attending Note Name of Resident: Wayne Brown ATTENDING PHYSICIAN STATEMENT I saw and evaluated the patient. I reviewed the resident's note and discussed the case with the resident. I agree with the resident's findings and plan as documented. SUBJECTIVE: Comfortable, swelling is than before. OBJECTIVE: Vital Signs Temperature 98.3 F 05/26/17 18:00 Pulse Rate 64 05/26/17 18:00 Respiratory Rate 16 05/26/17 18:00 Blood Pressure 111/64 05/26/17 18:00 O2 Sat by Pulse Oximetry (%) 92 L 05/26/17 09:00 CBCD WBC 13.4 K/mm3 (4.0-10.0) H D 05/26/17 06:00 RBC 4.22 M/mm3 (3.60-5.2) 05/26/17 06:00 Hgb 13.1 GM/dL (10.7-15.3) 05/26/17 06:00 Hct 37.9 % (32.4-45.2) 05/26/17 06:00 MCV 89.8 fl (80-96) 05/26/17 06:00 MCHC 34.5 g/dl (32.0-36.0) 05/26/17 06:00 RDW 12.9 % (11.6-15.6) 05/26/17 06:00 Plt Count 361 K/MM3 (134-434) 05/26/17 06:00 MPV 8.3 fl (7.5-11.1) 05/26/17 06:00 CMP Sodium 138 mmol/L (136-145) 05/26/17 06:00 Potassium 4.1 mmol/L (3.5-5.1) 05/26/17 06:00 Chloride 107 mmol/L (98-107) 05/26/17 06:00 Carbon Dioxide 25 mmol/L (21-32) 05/26/17 06:00 Anion Gap 6 (8-16) L 05/26/17 06:00 BUN 7 mg/dL (7-18) D 05/26/17 06:00 Creatinine 0.5 mg/dL (0.55-1.02) L 05/26/17 06:00 Creat Clearance w eGFR > 60 (>60) 05/26/17 06:00 Random Glucose 132 mg/dL (74-106) H D 05/26/17 06:00 Calcium 8.6 mg/dL (8.5-10.1) 05/26/17 06:00 Total Bilirubin 0.7 mg/dL (0.2-1.0) D 05/26/17 06:00 AST 14 U/L (15-37) L 05/26/17 06:00 ALT 40 U/L (12-78) D 05/26/17 06:00 Alkaline Phosphatase 74 U/L (45-117) 05/26/17 06:00 Total Protein 6.3 g/dl (6.4-8.2) L 05/26/17 06:00 Albumin 3.3 g/dl (3.4-5.0) L 05/26/17 06:00 Current Medications Generic Name Dose Route Start Last Admin Trade Name Freq PRN Reason Stop Dose Admin Acetaminophen 650 mg 05/26/17 17:32 Tylenol - PO Q6H PRN FEVER OR PAIN Diphenhydramine HCl 25 mg 05/25/17 19:08 Benadryl Injection - IVPUSH Q6H PRN FOR ITCHING Enoxaparin Sodium 40 mg 05/26/17 10:00 05/26/17 09:01 Lovenox - SQ 40 mg DAILY CARLIE Administration Vancomycin HCl 250 mls @ 250 mls/hr 05/25/17 22:00 05/26/17 09:02 Vancomycin (Pre-Docked) IVPB 250 mls/hr BID CARLIE Administration Protocol Sodium Chloride 1,000 mls @ 125 mls/hr 05/25/17 19:15 05/26/17 19:43 1/2 Normal Saline IV Not Given ASDIR CARLIE Aztreonam 1 gm/ Dextrose 50 mls @ 100 mls/hr 05/26/17 02:00 05/26/17 17:35 IVPB 100 mls/hr Q8H-IV CARLIE Administration Protocol Methylprednisolone Sodium Succinate 40 mg 05/26/17 02:00 05/26/17 17:52 Solu-Medrol - IVPB 40 mg Q8H-IV CARLIE Administration Neomycin/Polymyxin/Hydrocortisone 4 drop 05/25/17 18:00 05/26/17 19:18 Cortisporin Otic Solution - AD 4 drop Q6HPO CARLIE Administration Home Medications Medication Instructions Recorded NK [No Known Home Medication] 05/25/17 PE: Right ear pain less than yesterday with hearing loss. Positive for swelling of tympanic membrane ASSESSMENT AND PLAN: 31 yo F with no significant pmhx admitted to med-surg for facial cellulitis. # Acute Facial cellulitis with right otitis Externa ; ID consult appreciated and ENT appreciated ; Cipro 400mg IV Ciprofloxacin Q12h ; Cortisporin otic ear drops 4 drops 4x per day. Patient had a allergic rxn post Rocephin IV in ED. developed hives and SOB. Given 125 mg IV solumedrol and Albuterol In ED, ENT consult As per Dr.Tom Tinsley, remove wick in 2-3 days as pain improves. As per Dr.Tom Tinsley ;will need audiogram in office after discharge to assess hearing levels, assume most of her hearing loss is related to current infection and fluid/ swelling but need audiogram to assess her inner ear cochlear function # Acute allergic reaction to IV Rocephin: Solu medrol 40mg q8 IV, banadryl prn. #Deviated septum/chronic maxillary sinusitis : as per Dr.Tom Tinsley no pus or polyp continue antibiotics, nasal saline spray advised, follow-up in office after discharge for further work-up DVT Px: Lovenox
[2017-05-27] MEDS: methylPREDNISolone NA SUCC 40 MG/1 ML VIAL IVPB SCH ×2 (02:10→09:43)
[2017-05-27] MEDS: NEOMYCIN/POLYMYXN/HC OTIC SOLUTION 10 ML BOTTLE AD SCH ×6 (02:10→23:25)
[2017-05-27] MEDS: AZTREONAM 1 GM in DEXTROSE 5%-WATER - 50 ML IVPB SCH ×3 (02:12→17:14)
[2017-05-27] MEDS: SODIUM CHLORIDE 0.45% 1,000 ML IV SCH ×3 (06:36→20:53)
[2017-05-27 07:34] LABS: MCH 30.8 pg (25.7-33.7); MCHC 34.1 g/dl (32.0-36.0); MEAN CELL VOLUME 90.1 fl (80-96); MEAN PLT VOLUME 8.5 fl (7.5-11.1); PLATELET COUNT 347 K/MM3 (134-434); WHITE BLOOD COUNT 15.6 K/mm3 (4.0-10.0)
[2017-05-27] MEDS ORDERED: PT OWN MED DRAWER 7, Y5N ONE ×3 (09:16→23:31)
[2017-05-27] MEDS: ENOXAPARIN NA (PORCINE) 40 MG/0.4 ML DISP.SYRIN SQ SCH (09:43)
[2017-05-27] MEDS: VANCOMYCIN 1 GRAM (PRE-DOCKED) 250 ML IVPB SCH ×2 (09:43→21:00)
--- NOTE | 2017-05-27 14:01 | PN ---
Progress Note, Physician History of Present Illness: facial cellulitits better still with pain,but better no complaints ent note noted - Current Medication List Current Medications: Active Medications Acetaminophen (Tylenol -) 650 mg PO Q6H PRN PRN Reason: FEVER OR PAIN Diphenhydramine HCl (Benadryl Injection -) 25 mg IVPUSH Q6H PRN PRN Reason: FOR ITCHING Last Admin: 05/27/17 10:40 Dose: 25 mg Enoxaparin Sodium (Lovenox -) 40 mg SQ DAILY [facility] Last Admin: 05/27/17 09:43 Dose: 40 mg Vancomycin HCl (Vancomycin (Pre-Docked)) 250 mls @ 250 mls/hr IVPB BID CARLIE PRN Reason: Protocol Last Admin: 05/27/17 09:43 Dose: 250 mls/hr Sodium Chloride (1/2 Normal Saline) 1,000 mls @ 125 mls/hr IV ASDIR [facility] Last Admin: 05/27/17 06:36 Dose: 125 mls/hr Aztreonam 1 gm/ Dextrose 50 mls @ 100 mls/hr IVPB Q8H-IV CARLIE PRN Reason: Protocol Last Admin: 05/27/17 11:21 Dose: 100 mls/hr Methylprednisolone Sodium Succinate (Solu-Medrol -) 40 mg IVPB Q8H-IV CARLIE Last Admin: 05/27/17 09:43 Dose: 40 mg Neomycin/Polymyxin/Hydrocortisone (Cortisporin Otic Solution -) 4 drop AD Q6HPO [facility] Last Admin: 05/27/17 11:22 Dose: 4 drop - Objective Vital Signs: Vital Signs Temperature 98.2 F 05/27/17 09:42 Pulse Rate 63 05/27/17 09:42 Respiratory Rate 16 05/27/17 09:42 Blood Pressure 127/70 05/27/17 09:42 O2 Sat by Pulse Oximetry (%) 97 05/27/17 09:42 Constitutional: Yes: Calm, Mild Distress, Obese HENT: Yes: Other (packing in the rt ear) Cardiovascular: Yes: Regular Rate and Rhythm Respiratory: Yes: Regular, CTA Bilaterally Gastrointestinal: Yes: Normal Bowel Sounds, Soft Musculoskeletal: Yes: WNL Extremities: Yes: WNL Neurological: Yes: Alert, Oriented Psychiatric: Yes: Alert, Oriented Labs: CBC, BMP 05/27/17 05:35 05/26/17 06:00 Assessment/Plan Problem List - Problems (1) Otitis Code(s): H66.90 - OTITIS MEDIA, UNSPECIFIED, UNSPECIFIED EAR (2) Allergic reaction caused by a drug Code(s): T78.40XA - ALLERGY, UNSPECIFIED, INITIAL ENCOUNTER (3) Hives Code(s): L50.9 - URTICARIA, UNSPECIFIED 4 facial cellulitits rt side 5right otitis externa and otorrhea, also otomastoiditis on CT scan plan continue abx continue mgmt as per ent
--- NOTE | 2017-05-27 16:21 | PN ---
Teaching Attending Note Name of Resident: Wayne Brown ATTENDING PHYSICIAN STATEMENT I saw and evaluated the patient. I reviewed the resident's note and discussed the case with the resident. I agree with the resident's findings and plan as documented. SUBJECTIVE: Patient is feeling better, with no acute distress. Still right ear is hurting but not as much. OBJECTIVE: Vital Signs Temperature 98.8 F 05/27/17 14:37 Pulse Rate 70 05/27/17 14:37 Respiratory Rate 18 05/27/17 14:37 Blood Pressure 136/71 05/27/17 14:37 O2 Sat by Pulse Oximetry (%) 97 05/27/17 09:42 CBCD WBC 15.6 K/mm3 (4.0-10.0) H 05/27/17 05:35 RBC 4.19 M/mm3 (3.60-5.2) 05/27/17 05:35 Hgb 12.9 GM/dL (10.7-15.3) 05/27/17 05:35 Hct 37.7 % (32.4-45.2) 05/27/17 05:35 MCV 90.1 fl (80-96) 05/27/17 05:35 MCHC 34.1 g/dl (32.0-36.0) 05/27/17 05:35 RDW 13.0 % (11.6-15.6) 05/27/17 05:35 Plt Count 347 K/MM3 (134-434) 05/27/17 05:35 MPV 8.5 fl (7.5-11.1) 05/27/17 05:35 CMP Sodium 138 mmol/L (136-145) 05/26/17 06:00 Potassium 4.1 mmol/L (3.5-5.1) 05/26/17 06:00 Chloride 107 mmol/L (98-107) 05/26/17 06:00 Carbon Dioxide 25 mmol/L (21-32) 05/26/17 06:00 Anion Gap 6 (8-16) L 05/26/17 06:00 BUN 7 mg/dL (7-18) D 05/26/17 06:00 Creatinine 0.5 mg/dL (0.55-1.02) L 05/26/17 06:00 Creat Clearance w eGFR > 60 (>60) 05/26/17 06:00 Random Glucose 132 mg/dL (74-106) H D 05/26/17 06:00 Calcium 8.6 mg/dL (8.5-10.1) 05/26/17 06:00 Total Bilirubin 0.7 mg/dL (0.2-1.0) D 05/26/17 06:00 AST 14 U/L (15-37) L 05/26/17 06:00 ALT 40 U/L (12-78) D 05/26/17 06:00 Alkaline Phosphatase 74 U/L (45-117) 05/26/17 06:00 Total Protein 6.3 g/dl (6.4-8.2) L 05/26/17 06:00 Albumin 3.3 g/dl (3.4-5.0) L 05/26/17 06:00 Current Medications Generic Name Dose Route Start Last Admin Trade Name Freq PRN Reason Stop Dose Admin Acetaminophen 650 mg 05/26/17 17:32 Tylenol - PO Q6H PRN FEVER OR PAIN Diphenhydramine HCl 25 mg 05/25/17 19:08 05/27/17 10:40 Benadryl Injection - IVPUSH 25 mg Q6H PRN Administration FOR ITCHING Enoxaparin Sodium 40 mg 05/26/17 10:00 05/27/17 09:43 Lovenox - SQ 40 mg DAILY CARLIE Administration Vancomycin HCl 250 mls @ 250 mls/hr 05/25/17 22:00 05/27/17 09:43 Vancomycin (Pre-Docked) IVPB 250 mls/hr BID CARLIE Administration Protocol Sodium Chloride 1,000 mls @ 125 mls/hr 05/25/17 19:15 05/27/17 16:06 1/2 Normal Saline IV 125 mls/hr ASDIR CARLIE Administration Aztreonam 1 gm/ Dextrose 50 mls @ 100 mls/hr 05/26/17 02:00 05/27/17 11:21 IVPB 100 mls/hr Q8H-IV CARLIE Administration Protocol Methylprednisolone Sodium Succinate 40 mg 05/26/17 02:00 05/27/17 09:43 Solu-Medrol - IVPB 40 mg Q8H-IV CARLIE Administration Neomycin/Polymyxin/Hydrocortisone 4 drop 05/25/17 18:00 05/27/17 11:22 Cortisporin Otic Solution - AD 4 drop Q6HPO CARLIE Administration Home Medications Medication Instructions Recorded NK [No Known Home Medication] 05/25/17 PE: Right ear pain less than yesterday with hearing loss. Positive for swelling of tympanic membrane ASSESSMENT AND PLAN: 31 yo F with no significant pmhx admitted to med-surg for facial cellulitis. # Acute Facial cellulitis with right otitis Externa improving s/p wick placement ; ID consult appreciated and ENT appreciated ; On Azactam and Vancomycin s/p Cipro IV ; Cortisporin otic ear drops 4 drops 4x per day continue. Patient had a allergic rxn post Rocephin IV in ED. developed hives and SOB. Given 125 mg IV solumedrol and Albuterol In ED, ENT consult As per Dr.Tom Tinsley, remove wick in 2-3 days as pain improves. As per Dr.Tom Tinsley ;will need audiogram in office after discharge to assess hearing levels, assume most of her hearing loss is related to current infection and fluid/ swelling but need audiogram to assess her inner ear cochlear function # Acute allergic reaction to IV Rocephin: Solu medrol 40mg q8 IV, banadryl prn. we can stop the IV solu medrol now #Deviated septum/chronic maxillary sinusitis : as per Dr.Tom Tinsley no pus or polyp continue antibiotics, nasal saline spray advised, follow-up in office after discharge for further work-up DVT Px: Lovenox
--- NOTE | 2017-05-27 19:30 | PN ---
Physical Exam: SUBJECTIVE: Patient seen and examined this AM. Last night the patient had ear pain, vomited 1x NBNB emesis, received Tordol injection with relief. No complaints since then. No CP, no SOB, no fevers, no chills OBJECTIVE: Vital Signs Period Temp Pulse Resp BP Sys/Rocha Pulse Ox Last 24 Hr 97.7 F-98.8 F 63-79 16-18 117-136/66-81 97 GENERAL: AAO x 3, NAD HEENT: PERRLA, EOMi, TTP in L jaw, improved redness + swelling of face R EAR: Wick placed in ear L Ear: Clear tympanic membrane, no bulging, no redness CV: S1, S2, RRR, no murmur LUNG: CTABL, no labored breathing MSK: 2+ pulses, no edema Neuro: CN 2-12 intact, sensation equal/intact face + body, MSK 5/5, reflexes 2+ Laboratory Results - last 24 hr 05/27/17 05:35 WBC 15.6 H RBC 4.19 Hgb 12.9 Hct 37.7 MCV 90.1 MCH 30.8 MCHC 34.1 RDW 13.0 Plt Count 347 MPV 8.5 Active Medications Generic Name Dose Route Start Last Admin Trade Name Freq PRN Reason Stop Dose Admin Acetaminophen 650 mg 05/26/17 17:32 Tylenol - PO Q6H PRN FEVER OR PAIN Diphenhydramine HCl 25 mg 05/25/17 19:08 05/27/17 10:40 Benadryl Injection - IVPUSH 25 mg Q6H PRN Administration FOR ITCHING Enoxaparin Sodium 40 mg 05/26/17 10:00 05/27/17 09:43 Lovenox - SQ 40 mg DAILY [facility] Administration Vancomycin HCl 250 mls @ 250 mls/hr 05/25/17 22:00 05/27/17 09:43 Vancomycin (Pre-Docked) IVPB 250 mls/hr BID [facility]LIE Administration Protocol Sodium Chloride 1,000 mls @ 125 mls/hr 05/25/17 19:15 05/27/17 16:06 1/2 Normal Saline IV 125 mls/hr ASDIR [facility] Administration Aztreonam 1 gm/ Dextrose 50 mls @ 100 mls/hr 05/26/17 02:00 05/27/17 17:14 IVPB 100 mls/hr Q8H-IV [facility] Administration Protocol Neomycin/Polymyxin/Hydrocortisone 4 drop 05/25/17 18:00 05/27/17 17:15 Cortisporin Otic Solution - AD 4 drop Q6HPO [facility] Administration ASSESSMENT/PLAN: Pt is a 31yo F without significant PMHx who presented with 2 weeks of 10/10 stabbing R ear pain w/ R sided facial swelling and redness. She had gone to the beach which had made her ear pain worse. CT soft tissue in ER showed minimal soft tissue swelling over R face without abscess. She was given Ceftriaxone in the ED which caused her to have hievs and SOB. She was later switched to Cipro + Vanc. # Acute Otitis Externa - Continue Corticosporin ear drops - Ear wick placed for drops - Remove wick in 2-3 days as pain improves - Pt will need ENT f/u as outpatient # Otomastoiditis w/ Facial Cellulitis - Improved - Continue Aztreonam 1g Q8 - Continue Vancomycin 1g IV BID - F/u ID reccs # FEN - Fluids: None - Electrolytes: Monitor - Nutrition: Chopped diet # Prophylaxis - DVT: Lovenox 40mg SQ QD - good renal function - GI: Not indicated - Deconditioning: Ambulating # Disposition - New white count, continue abx - Await ENT reccs, d/c when pain improves Visit type - Emergency Visit Emergency Visit: No - New Patient This patient is new to me today: No - Critical Care Critical Care patient: No - Discharge Referral Referred to [facility] Med P.C.: No
[2017-05-28] MEDS ORDERED: PT OWN MED DRAWER 7, Y5N ONE ×5 (01:48→16:51)
[2017-05-28] MEDS: SODIUM CHLORIDE 0.45% 1,000 ML IV SCH ×2 (01:50→09:56)
[2017-05-28] MEDS: AZTREONAM 1 GM in DEXTROSE 5%-WATER - 50 ML IVPB SCH ×3 (01:51→17:15)
[2017-05-28] MEDS: NEOMYCIN/POLYMYXN/HC OTIC SOLUTION 10 ML BOTTLE AD SCH ×3 (06:09→17:15)
[2017-05-28 07:46] LABS: MCH 30.9 pg (25.7-33.7); MEAN CELL VOLUME 90.7 fl (80-96); MEAN PLT VOLUME 8.8 fl (7.5-11.1); PLATELET COUNT 322 K/MM3 (134-434); RDW 13.2 % (11.6-15.6); WHITE BLOOD COUNT 10.8 K/mm3 (4.0-10.0)
[2017-05-28] MEDS: ENOXAPARIN NA (PORCINE) 40 MG/0.4 ML DISP.SYRIN SQ SCH (09:51)
[2017-05-28] MEDS: VANCOMYCIN 1 GRAM (PRE-DOCKED) 250 ML IVPB SCH (09:52)
--- NOTE | 2017-05-28 14:20 | PN ---
Progress Note, Physician History of Present Illness: patient stable doing well cellulitis improving ent ok with patient going home - Current Medication List Current Medications: Active Medications Acetaminophen (Tylenol -) 650 mg PO Q6H PRN PRN Reason: FEVER OR PAIN Diphenhydramine HCl (Benadryl Injection -) 25 mg IVPUSH Q6H PRN PRN Reason: FOR ITCHING Last Admin: 05/27/17 10:40 Dose: 25 mg Enoxaparin Sodium (Lovenox -) 40 mg SQ DAILY [facility] Last Admin: 05/28/17 09:51 Dose: 40 mg Vancomycin HCl (Vancomycin (Pre-Docked)) 250 mls @ 250 mls/hr IVPB BID [facility] PRN Reason: Protocol Last Admin: 05/28/17 09:52 Dose: 250 mls/hr Aztreonam 1 gm/ Dextrose 50 mls @ 100 mls/hr IVPB Q8H-IV [facility] PRN Reason: Protocol Last Admin: 05/28/17 09:52 Dose: 100 mls/hr Neomycin/Polymyxin/Hydrocortisone (Cortisporin Otic Solution -) 4 drop AD Q6HPO [facility] Last Admin: 05/28/17 06:09 Dose: 4 drop - Objective Vital Signs: Vital Signs Temperature 98.4 F 05/28/17 10:00 Pulse Rate 60 05/28/17 10:00 Respiratory Rate 18 05/28/17 10:00 Blood Pressure 116/66 05/28/17 10:00 O2 Sat by Pulse Oximetry (%) 97 05/28/17 09:00 Constitutional: Yes: No Distress, Calm, Obese HENT: Yes: Other (facialy cellulitis much better) Cardiovascular: Yes: Regular Rate and Rhythm Respiratory: Yes: Regular, CTA Bilaterally Gastrointestinal: Yes: Normal Bowel Sounds, Soft Musculoskeletal: Yes: WNL Extremities: Yes: WNL Neurological: Yes: Alert, Oriented Psychiatric: Yes: Alert, Oriented Labs: CBC, BMP 05/28/17 05:35 05/26/17 06:00 Assessment/Plan Problem List - Problems (1) Otitis Code(s): H66.90 - OTITIS MEDIA, UNSPECIFIED, UNSPECIFIED EAR (2) Allergic reaction caused by a drug Code(s): T78.40XA - ALLERGY, UNSPECIFIED, INITIAL ENCOUNTER (3) Hives Code(s): L50.9 - URTICARIA, UNSPECIFIED 4 facial cellulitits rt side 5right otitis externa and otorrhea, also otomastoiditis on CT scan plan according to ent patient can go home with wick as per nursing staff in that case give patient cipro 500 mg twice a day for 7 more days clinda 300 mg every 8 hourly for 7 more days rest it will depend on what ent see after removal of the wick and further plan for her treatment
[2017-05-28 14:41] VITALS: BP 104/59; PULSE 68; TEMP 98.5
--- NOTE | 2017-05-28 17:26 | PN ---
Teaching Attending Note Name of Resident: Wayne Brown ATTENDING PHYSICIAN STATEMENT I saw and evaluated the patient. I reviewed the resident's note and discussed the case with the resident. I agree with the resident's findings and plan as documented. SUBJECTIVE: no fever or chills . denies any hearing loss at this time , has no ear pain or nasal discharge OBJECTIVE: NAD CV : RRR lUngs CTAB Ext : no edema HEENT: no erythema or edema over face or ear lobe . has no LAP . nl oropharynx. Wick in R ear ASSESSMENT AND PLAN: 31 y/o lady with no significant PMH who presented with R facial erythema and edema and ear pain and was found to have facial cellulitis and otitis externa 1- R facial cellulitis 2- R otitis externa 3- Otomastoiditis 4- Maxillary sinusitis 5- hearing loss plan : - improved - cont clinda and cipro as out pt - f/u with ENT - adjust duration per ENT exam - needs audiogram as out pt dc home
--- NOTE | 2017-05-29 07:47 | DS ---
Physical Exam: SUBJECTIVE: Patient seen and examined this AM. No fevers, no chills, no SOB, no CP. No ear tenderness, no facial tenderness. OBJECTIVE: Vital Signs Period Temp Pulse Resp BP Sys/Rocha Pulse Ox Last 24 Hr 98.4 F-98.5 F 60-68 18-18 104-116/59-66 97 PHYSICAL EXAM GENERAL: AAO x 3, NAD HEENT: PERRLA, EOMi, no TTP in auricular area, no facial TTP R EAR: Wick placed in ear L Ear: Clear tympanic membrane, no bulging, no redness CV: S1, S2, RRR, no murmur LUNG: CTABL, no labored breathing MSK: 2+ pulses, no edema Neuro: CN 2-12 intact, sensation equal/intact face + body, MSK 5/5, reflexes 2+ LABS Laboratory Results - last 24 hr 05/28/17 05:35 WBC 10.8 H D RBC 4.01 Hgb 12.4 Hct 36.3 MCV 90.7 MCH 30.9 MCHC 34.0 RDW 13.2 Plt Count 322 MPV 8.8 HOSPITAL COURSE: Date of Admission:05/25/17 Date of Discharge: 05/29/17 Ms. Dumont is a 31yo F who presented with 2 weeks of 10/10 stabbing R ear pain w/ R sided facial swelling and redness. She had gone swimming in the beach which had made her ear pain worse. CT soft tissue in ER showed minimal soft tissue swelling over R face without abscess. She was given Ceftriaxone in the ED which caused her to have hives and shortness of breath. She was later switched to Ciprofloxacin + Vancomycin. # Acute Otitis Externa (R ear) - The patient had an erythematous ear canal with extreme tender to palpation. ENT saw the patient in the hospital and inserted a wick into the ear to allow the corticosporin drops to adequately penetrate. She will make an appointment with ENT so they can remove the wick and examine the ear. At discharge, her pain was resolved. # Otomastoiditis w/ Facial Cellulitis - CT scan showed soft tissue swelling of the face. The patient was treated with Aztreonam and Vancomycin IV, since the patient has an allergy to ceftriaxone. Infectious Disease followed the patient during the admission. She improved and was discharged with Clindamycin and Ciprofloxacin. The patient was aware of the hospital course and agrees with the plan. Minutes to complete discharge: 55 Discharge Summary Reason For Visit: FACIAL CELLULITIS; OTITIS EXTERNA Condition: Improved - Instructions Diet, Activity, Other Instructions: - Please take your antibiotics Ciprofloxacin 500mg two times a day x 7 days Clindamycin 300mg every 8 hours x 7 days - Followup with your ENT (ear, nose, throat) doctor Dr. Artem Tinsley You will need an audiogram to assess your hearing - Please try to avoid swimming until your ENT doctor allows you to - Please follow with your Primary Care Doctor - If you have any serious symptoms please return to the Emergency room En Espanol: -Por favor tome jonah antibiticos Ciprofloxacina 500mg dos veces al da x 7 lai Clindamicina 300mg cada 8 horas x 7 lai -Seguimiento con eddy doctor de otorrinolaringlogo Dr. Artem Tinsley Usted necesitar un audiograma para evaluar la audicin -Por favor, trate de evitar nadar hasta que eddy mdico ENT le permite -Por favor, siga con eddy mdico de atencin primaria -Si usted tiene sntomas graves por favor regresa a la juani de emergencia Referrals: Laureano Mcgill MD [Staff Physician] - 1 Week Disposition: HOME - Home Medications Comprehensive Discharge Medication List: Ambulatory Orders Ciprofloxacin [Cipro -] 500 mg PO BID #14 tablet 05/28/17 Clindamycin [Cleocin -] 300 mg PO Q8H #21 capsule 05/28/17 - Discharge Referral Referred to [facility] No
== END 2017-05-28 17:23 | disposition home or self-care (01) | DRG 383 ==
LOC: JERFT 08:49 → JER 08:49 → JERBED 12:52 → J7W 14:05
PROVIDERS: ADMIT Internal Medicine; ATTEND Internal Medicine
DX: L03.211 Cellulitis of face (principal); H66.90 Otitis media, unspecified, unspecified ear; L50.0 Allergic urticaria; H66.91 Otitis media, unspecified, right ear; H91.8X1 Other specified hearing loss, right ear; H70.891 Other mastoiditis and related conditions, right ear; J34.2 Deviated nasal septum; J32.0 Chronic maxillary sinusitis; H60.8X1 Other otitis externa, right ear; H92.11 Otorrhea, right ear; T36.1X5A Adverse effect of cephalosporins and other beta-lactam antibiotics, initial encounter; Y92.230 Patient room in hospital as the place of occurrence of the external cause
CPT/HCPCS: 36415; 70486-TC; 80053; 81003; 81015; 83605; 83735; 84100; 84703; 85025; 85027; 87040; 87086; 99283-25

== ENCOUNTER 2017-12-01 09:08 | Emergency (ER) | payer OTHER ==
[2017-12-01 09:17] VITALS: BP 120/80; PULSE 82; TEMP 97.5; BMI 27.4
--- NOTE | 2017-12-01 09:23 | PDOC ---
History of Present Illness - General Chief Complaint: Chest Pain Stated Complaint: CHEST PAIN Time Seen by Provider: 12/01/17 09:23 - History of Present Illness Initial Comments: 12/01/17 09:32 Ms. Dumont is a 32 yo female w/ no pmh who presents c/o a 3 month history of left breast pain with a 3 day history of pain radiating to her left elbow. She reports that she feels a small mass on her left breast. She also complains of left nipple itchiness over the last few months as well. The patient denies shortness of breath, headache and dizziness. Denies fever, chills, nausea, vomit, diarrhea and constipation. Denies dysuria, frequency, urgency and hematuria. Allergies: Ceftriaxone Past History - Past Medical History Allergies/Adverse Reactions: Allergies Allergy/AdvReac Type Severity Reaction Status Date / Time ceftriaxone sodium Allergy Severe Hives Verified 12/01/17 09:17 [From [facility]] Home Medications: Ambulatory Orders Ciprofloxacin [Cipro -] 500 mg PO BID #14 tablet 05/28/17 Clindamycin [Cleocin -] 300 mg PO Q8H #21 capsule 05/28/17 COPD: No - Immunization History Immunization Up to Date: Yes - Suicide/Smoking/Psychosocial Hx Smoking History: Never smoked Have you smoked in the past 12 months: No Hx Alcohol Use: No Drug/Substance Use Hx: No Substance Use Type: None Review of Systems - Review of Systems Comments:: 12/01/17 09:35 GENERAL/CONSTITUTIONAL: No fever or chills. No weakness. HEAD, EYES, EARS, NOSE AND THROAT: No change in vision. No ear pain or discharge. No sore throat. CARDIOVASCULAR: +Left sided long standing chest pain she reports is made worse by inspiration and pushing on it. RESPIRATORY: No cough, wheezing, or hemoptysis. GASTROINTESTINAL: No nausea, vomiting, diarrhea or constipation. GENITOURINARY: No dysuria, frequency, or change in urination. MUSCULOSKELETAL: No joint or muscle swelling or pain. No neck or back pain. SKIN: No rash NEUROLOGIC: No headache, vertigo, loss of consciousness, or change in strength/ sensation. ENDOCRINE: No increased thirst. No abnormal weight change HEMATOLOGIC/LYMPHATIC: No anemia, easy bleeding, or history of blood clots. ALLERGIC/IMMUNOLOGIC: No hives or skin allergy. *Physical Exam - Vital Signs Last Vital Signs Temp Pulse Resp BP Pulse Ox 97.5 F L 82 16 120/80 98 12/01/17 09:15 12/01/17 09:15 12/01/17 09:15 12/01/17 09:15 12/01/17 09:15 Medical Decision Making - Medical Decision Making 12/01/17 10:49 Ms. Dumont is a 32 yo female w/ pmh as described who presents w/ left breast pain. HCG negative, US negative as well. Will refer to [facility] for further evaluation. *DC/Admit/Observation/Transfer Diagnosis at time of Disposition: Breast pain - Discharge Dispostion Disposition: HOME - Referrals - Patient Instructions Printed Discharge Instructions: DI for Atypical Chest Pain Additional Instructions: Please follow-up with [facility] for further evaluation. You can contact [facility] at to schedule an appointment. Return to the ER if any increase / return of pain, fever, or other concerning symptoms. - Post Discharge Activity
--- NOTE | 2017-12-01 09:33 | PDOC ---
Attending Attestation - HPI HPI: 12/01/17 09:45 Pt is a 32 yo F with no PMHx who presents to the ED with breast pain for the past 3 months. Patient notes L breast pain, 8/10 in severity, radiating to L elbow. Patient endorses L itchy nipple however denies any discharge. Patient denies any fever/chills, respiratory symptoms. PCP: None - Medical Decision Making 12/01/17 09:45 Documentation prepared by Julieta Becerril, acting as medical screener for Erica Guerrero MD <Julieta Becerril - Last Filed: 12/01/17 09:47> - Resident Resident Name: Garland De La Cruz - ED Attending Attestation I have performed the following: I have examined & evaluated the patient, The case was reviewed & discussed with the resident, I agree w/resident's findings & plan, Exceptions are as noted - Physicial Exam PE: GENERAL: Awake, alert, and fully oriented, in no acute distress HEAD: No signs of trauma LUNGS: Breath sounds equal, clear to auscultation bilaterally. No wheezes, and no crackles HEART: Regular rate and rhythm, normal S1 and S2, no murmurs, rubs or gallops EXTREMITIES: Normal range of motion, no edema. No clubbing or cyanosis. No cords, erythema, or tenderness SKIN: Warm, Dry, normal turgor, no rashes or lesions noted. BREAST: L breast with tender area to upper outer quadrant, no masses appreciated. No nipple discharge. No axillary lymphadenopathy. - Medical Decision Making Pt with breast tenderness, will obtain L breast ultrasound to further evaluate. Low suspicion for malignancy. 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 <Erica Guerrero - Last Filed: 12/01/17 10:52>
--- NOTE | 2017-12-01 23:19 | EKG ---
Test Reason : Blood Pressure : / mmHG Vent. Rate : 072 BPM Atrial Rate : 072 BPM P-R Int : 140 ms QRS Dur : 092 ms QT Int : 374 ms P-R-T Axes : 037 097 049 degrees QTc Int : 409 ms NORMAL SINUS RHYTHM WITH SINUS ARRHYTHMIA BORDERLINE ECG WHEN COMPARED WITH ECG OF 30-MAY-2016 14:41, VENT. RATE HAS DECREASED BY 37 BPM T WAVE VARIATION Confirmed by GAVINO HAILE, ERINN ([id number]) on 12/01/2017 11:18:47 PM Referred By: Confirmed By:ERINN MANCIA MD
== END 2017-12-01 11:45 | disposition home or self-care (01) ==
LOC: JER 09:08
DX: N64.4 Mastodynia (principal)
CPT/HCPCS: 76641-TC-LT; 84703; 93005; 93010; 99283-25

== ENCOUNTER 2018-10-24 14:44 | Emergency (ER) | payer OTHER ==
[2018-10-24 14:57] VITALS: BP 119/89; PULSE 97; TEMP 98; BMI 27.3
--- NOTE | 2018-10-24 15:32 | PDOC ---
History of Present Illness - General Chief Complaint: Pain, Acute Stated Complaint: PAIN Time Seen by Provider: 10/24/18 15:30 History Source: Patient Exam Limitations: No Limitations - History of Present Illness Initial Comments: 32 y/o female presenting to [facility] ER complaining of bilateral lower quadrant abdominal pain with dysuria and hematuria. Symptoms started on Friday and have progressively worsened. Pain has started to radiate to both flanks and lower back. Denies fevers, chills, or diaphoresis. Endorses urinary frequency and nausea without vomiting. No history of STD or UTI. Single sexual partner in past 6 months. Monogamous with . Past History - Past Medical History Allergies/Adverse Reactions: Allergies Allergy/AdvReac Type Severity Reaction Status Date / Time ceftriaxone sodium Allergy Severe Hives Verified 10/24/18 14:54 [From [facility]] Home Medications: Ambulatory Orders Azithromycin 250 mg PO DAILY 14 Days #14 tablet 10/24/18 Metronidazole 500 mg PO BID 14 Days #28 tablet 10/24/18 COPD: No - Immunization History Immunization Up to Date: Yes - Suicide/Smoking/Psychosocial Hx Smoking History: Never smoked Have you smoked in the past 12 months: No Hx Alcohol Use: No Drug/Substance Use Hx: No Substance Use Type: None Review of Systems - Review of Systems Able to Perform ROS?: Yes Comments:: In addition to that documented in the HPI above, the additional ROS was obtained : Constitutional: Denies fevers or chills Eyes: Denies vision changes ENMT: Denies sore throat CV: Denies chest pain Resp: Denies SOB GI: Denies vomiting or diarrhea : Per HPI MSK: Denies recent trauma Skin: Denies new rashes Neuro: Denies new numbness or tingling or weakness Endocrine: Endorses polyuria Heme: Denies bleeding or bruising *Physical Exam - Vital Signs Last Vital Signs Temp Pulse Resp BP Pulse Ox 98.0 F 97 H 18 119/89 94 L 10/24/18 14:55 10/24/18 14:55 10/24/18 14:55 10/24/18 14:55 10/24/18 14:55 - Physical Exam Comments: Constitutional: Well-developed, well-nourished, non-toxic female in no acute distress or obvious discomfort. Found semi-fowlers in hospital bed. Alert and oriented x4. Answered all questions appropriately and completely. Speech was non -labored, non-pressured. Head: Normocephalic. No obvious external signs of trauma. Eyes: Sclerae white. EARS: Hearing grossly intact. NOSE: No nasal discharge. Neck: Supple, trachea is midline. Cardiovascular: Regular rate and regular rhythm. No murmur, rubs, clicks, or gallops. Peripheral pulses: Radial pulses full. Respiratory: Breathing unlabored. Equal chest rise and fall. Clear to auscultation bilaterally. No stridor, no wheezing, no rhonchi. Gastrointestinal: abdomen is tender LLQ>RLQ without rebound or guarding. Globally, abdomen is soft, and non-distended. No hepatosplenemegaly. No pulsatile masses. No overlying skin lesions or obvious signs of trauma. Negative obturator sign. Neuro: Alert and oriented. Moving all four extremities spontaneously. Skin: Warm, dry, and intact. : No R or L CVA tenderness. Psych: Affect: appropriate. Mood: normal. Female Pelvic: External genitalia unremarkable. Speculum exam with white mucopurulent vaginal discharge. Vaginal wall mucosa is unremarkable. Cervix visualized and is erythematous with discharge through OS. Bimanual exam with moderate cervical motion tenderness without adnexal tenderness or any masses appreciated. RN chaperoned exam. Moderate Sedation - Procedure Monitoring Vital Signs: Procedure Monitoring Vital Signs Temperature 98.0 F 10/24/18 14:55 Pulse Rate 97 H 10/24/18 14:55 Respiratory Rate 18 10/24/18 14:55 Blood Pressure 119/89 10/24/18 14:55 O2 Sat by Pulse Oximetry (%) 94 L 10/24/18 14:55 ED Treatment Course - LABORATORY CBC & Chemistry Diagram: 10/24/18 16:30 10/24/18 16:30 Medical Decision Making - Medical Decision Making *Reviewed vital signs, nursing notes, and prior visit documentation (if available). 32 y/o female presenting with lower abdominal pain, dysuria, and hematuria worsening over past four days. Afebrile. Vitals unremarkable for tachycardia or hypotension. No CVA tenderness. Pelvic exam revealed mucopurulent discharge with cervicitis. CBC unremarkable for leukocytosis. UA remarkable for pyuria, nitrites, and leukocyte esterase. Suspect this is secondary to cervicitis with moderate CMT. Cervical swab for Chlamydia, Gonorrhea, and Trichomonas sent. Lab follow up entered. IUD removed. Device covered in discharge and blood. Continue to suspect possible PID. Pt is allergic to ceftriaxone with documentation of hives. Will treat with 14 days of Azithromycin and Metronidazole. First dose given in department. Gonorrhea, chlamydia, and trichomonas cervical swab culture pending. Call back placed in [facility]. Discussed physical exam findings and laboratory results with pt. Answered all questions. Provided return precautions. Pt expressed verbal understanding and agreement with plan to discharge home with outpatient OBGYN follow up. *DC/Admit/Observation/Transfer Diagnosis at time of Disposition: PID (acute pelvic inflammatory disease), Remove/insert IUD - Discharge Dispostion Disposition: HOME Condition at time of disposition: Good Decision to Admit order: No - Prescriptions Prescriptions: Azithromycin 250 mg PO DAILY 14 Days #14 tablet Metronidazole 500 mg PO BID 14 Days #28 tablet - Referrals Schedule a call back: GC, Chlamydia, Trich, Urine Culture - Patient Instructions Printed Discharge Instructions: DI for Pelvic Inflammatory Disease Additional Instructions: You were seen today for painful urination, blood in urine, and lower abdominal pain. Your exam showed you likely have an infection of your cervix that may involve other organs in your pelvis. Your IUD was removed because of the infection. You received two antibiotics in the department. I have sent a prescription for two more antibiotics to your pharmacy. You should start these medications tomorrow (10/25/2018). Please follow up with your OBGYN doctor within the next 4-5 days to make sure you symptoms are improving. Be sure to mention your IUD was removed. You may also follow up with your primary care doctor. You will need to call to make an appointment. Go to the nearest emergency department if your condition worsens or you feel like you need additional emergency evaluation. A usted lo atendieron hoy por orinar con dolor, lenny en la orina y dolor en la parte inferior del abdomen. Eddy examen mostr que es probable que tenga morgan infeccin en el vineet uterino que podra afectar a otros rganos de la pelvis. Eddy DIU fue retirado debido a la infeccin. Recibiste dos antibiticos en el departamento. He enviado morgan receta para dos antibiticos ms a eddy farmacia. Debes comenzar estos medicamentos maana (10/25/2018). Por favor, kelsi un seguimiento con eddy mdico OBGYN dentro de los prximos 4-5 lai para asegurarse de que jonah sntomas estn mejorando. Asegrese de mencionar que se retir eddy DIU. Halie puede hacer un seguimiento con eddy mdico de atencin primaria. Tendr que llamar para hacer morgan lala. Vaya al departamento de emergencias ms cercano si eddy afeccin empeora o si dany que necesita morgan evaluacin de emergencia adicional. Print Language: MACEDONIAN - Post Discharge Activity
[2018-10-24] MEDS ORDERED: ACETAMINOPHEN 500 MG TABLET (FP) PO ONE (16:28)
--- NOTE | 2018-10-24 16:32 | PDOC ---
Attending Attestation - HPI HPI: 10/24/18 16:51 The patient is a 32 year old female with no significant past medical history who presents to the emergency department with lower back and abdominal pain for about 4 days. The patient reports that she has been experiencing associated chills, dysuria, and hematuria with her pain. She denies any other symptoms. She denies any fever, nausea, vomiting, diarrhea, constipation. She denies any chest pain, shortness of breath, headache or dizziness. The patient denies any any other complaints. Documentation prepared by Saba Cruz, acting as medical receptionist biller for Ernie Estrella MD. - Physicial Exam PE: 10/24/18 16:51 Vitals: Triage vital signs reviewed General Appearance: No acute distress, well nourished, well developed Chest Wall: Nontender Cardiac: Regular rate and rhythm, no murmurs, no rubs, no gallops Lungs: Clear to auscultation bilateral, good air movement bilaterally Abdomen:(+)diffuse lower abdominal discomfort. Soft, nondistended, normal bowel sounds. Genitourinary: Extremities: Full range of motion to all extremities, no cyanosis, clubbing, or edema Skin: Warm and dry, no rashes or lesions, no rash, no petechiae Neuro: AOX3; Cranial Nerves 2-12 grossly intact, Strength intact to all extremities, Sensation intact to all extremities, gait normal Psych: Normal mood, normal affect - Medical Decision Making 10/24/18 16:52 The patient is a 32 year old female with no significant past medical history who presents to the emergency department with lower back and abdominal pain for about 4 days. The patient will get basic labs done as well as a PELVIC exam <Saba Cruz - Last Filed: 10/24/18 16:51> - Resident Resident Name: Vivek Cho - ED Attending Attestation I have performed the following: I have examined & evaluated the patient, The case was reviewed & discussed with the resident, I agree w/resident's findings & plan, Exceptions are as noted - Medical Decision Making Patient with suprapubic discomfot, cervical motion tenderness with purulent discharge hematuria dysuria and low back discomfort Urinalysis grossly infected however given marked mucopurulent discharge on pelvic examination and a patient with an IUD in place there is concern for an infected IUD This was discussed with patient. Her IUD was removed. She will be treated for presumed PID which will also cover her urinary tract infection. She is allergic to Ceftriaxone, so Azithromycin and Metronidozle x 14 days ordered. She will follow up with her primary care provider this week. Findings the need for follow up and strict return instructions d/w pt. 10/24/18 21:32 <Ernie Estrella - Last Filed: 10/24/18 21:33>
[2018-10-24] MEDS ORDERED: ACETAMINOPHEN 325 MG TABLET (FP) ONE (16:34)
[2018-10-24 16:39] LABS: BASO % 0.3 % (0-2.0); EOS % 0.8 % (0-4.5); HEMATOCRIT 38.9 % (32.4-45.2); MCH 32.6 pg (25.7-33.7); MCHC 35.9 g/dl (32.0-36.0); MEAN CELL VOLUME 90.8 fl (80-96); MEAN PLT VOLUME 8.6 fl (7.5-11.1); MONO % 6.8 % (3.8-10.2); NEUT % 70.1 % (42.8-82.8); PLATELET COUNT 316 K/MM3 (134-434); RBC 4.28 M/mm3 (3.60-5.2); RDW 12.8 % (11.6-15.6); WHITE BLOOD COUNT 8.9 K/mm3 (4.0-10.0)
[2018-10-24 16:48] LABS: URINE APPEARANCE SLCLOUDY; URINE BILIRUBIN NEGATIVE (<2.0 mg/dL); URINE COLOR AMBER; URINE GLUCOSE (UA) NEGATIVE (NEGATIVE); URINE KETONE NEGATIVE (NEGATIVE); URINE LEUK ESTERASE 2+ (NEGATIVE); URINE NITRITE POSITIVE (NEGATIVE); URINE PROTEIN 2+ (NEGATIVE)
[2018-10-24 17:13] LABS: EPI CELLS RARE /HPF (FEW); URINE BACTERIA RARE /hpf (NONE SEEN); URINE MUCUS RARE
[2018-10-24 17:15] LABS: ALK PHOS 66 U/L (45-117); ANION GAP 8 MMOL/L (8-16); BILIRUBIN,TOTAL 0.4 mg/dL (0.2-1); BLOOD UREA NITROGEN 10 mg/dL (7-18); CALCIUM 8.8 mg/dL (8.5-10.1); CHLORIDE 109 mmol/L (98-107); CO2 24 mmol/L (21-32); CREATININE 0.6 mg/dL (0.55-1.3); GLUCOSE,RANDOM 88 mg/dL (74-106); LIPASE 150 U/L (73-393); POTASSIUM 3.9 mmol/L (3.5-5.1); SGOT/AST 21 U/L (15-37); SGPT/ALT 36 U/L (13-61); SODIUM 141 mmol/L (136-145); TOT PROT 7.4 g/dl (6.4-8.2)
[2018-10-24] MEDS ORDERED: AZITHROMYCIN IVPB 500 MG in DEXTROSE 5%-WATER - 250 ML IVPB ONE (18:49)
[2018-10-24] MEDS ORDERED: metroNIDAZOLE 250 MG TABLET PO ONE (18:53)
[2018-10-24] MEDS ORDERED: AZITHROMYCIN IVPB 500 MG/250 ML BAG IVPB ONE (18:54)
[2018-10-24] MEDS ORDERED: metroNIDAZOLE 250 MG TABLET ONE (18:58)
== END 2018-10-24 19:42 | disposition home or self-care (01) ==
LOC: JER 14:44
PROC: 0UPD7HZ Removal of Contraceptive Device from Uterus and Cervix, Via Natural or Artificial Opening (ICD-10-PCS; principal; 2018-10-24)
PROC: 3E03329 Introduction of Other Anti-infective into Peripheral Vein, Percutaneous Approach (ICD-10-PCS; 2018-10-24)
DX: N73.8 Other specified female pelvic inflammatory diseases (principal)
CPT/HCPCS: 36415; 80053; 81003; 81015; 83690; 84703; 85025; 87086; 87186; 87491; 87591; 87661; 99283-25

== ENCOUNTER 2018-12-26 22:02 | Emergency (ER) | payer OTHER ==
[2018-12-26 22:07] VITALS: BMI 28.9
[2018-12-26] MEDS ORDERED: FAMOTIDINE 20 MG/50 ML IVPB 20 MG/50 ML MG IVPB ONE ×2 (22:41→22:50)
[2018-12-26] MEDS ORDERED: ACETAMINOPHEN 1000 MG/100 ML VIAL (NON FORMULARY) IVPB ONE (22:41)
[2018-12-26 22:43] LABS: BASO % 0.3 % (0-2.0); EOS % 0.9 % (0-4.5); LYMPH % 26.9 % (8-40); MCH 33.1 pg (25.7-33.7); MCHC 36.2 g/dl (32.0-36.0); MEAN CELL VOLUME 91.5 fl (80-96); MEAN PLT VOLUME 8.4 fl (7.5-11.1); MONO % 5.5 % (3.8-10.2); NEUT % 66.4 % (42.8-82.8); PLATELET COUNT 288 K/MM3 (134-434); RBC 4.28 M/mm3 (3.60-5.2); WHITE BLOOD COUNT 7.7 K/mm3 (4.0-10.0)
--- NOTE | 2018-12-26 22:48 | PDOC ---
History of Present Illness - History of Present Illness Initial Comments: 12/26/18 23:06 The patient is a 33 year old 4-5 weeks female , with a significant past medical history of migraines, who presents to the emergency department with , 1 week of bilateral suprapubic discomfort ranked an 8/10, pushing sensation. Patient recently found out she was 12/23 at a clinic with a positive urine . Patient was recently seen 10/2018 with similar symptoms. She denies recent fevers, chills, headache or dizziness. She denies recent nausea, vomit, diarrhea or constipation. She denies recent dysuria, frequency, urgency or hematuria. She denies recent chest pain or shortness of breath. Allergies: Ceftriaxone. Past surgical history: None reported. LMP: 2 <Jian Crow - Last Filed: 12/26/18 23:06> - General History Source: Patient Exam Limitations: No Limitations <Scotty Mcguire - Last Filed: 12/27/18 14:38> - General Chief Complaint: Pain Stated Complaint: ABDOMINAL PAIN ( ) Time Seen by Provider: 12/26/18 22:15 Past History <Jian Crow - Last Filed: 12/26/18 23:06> - Past Medical History COPD: No - Immunization History Immunization Up to Date: Yes - Suicide/Smoking/Psychosocial Hx Smoking History: Never smoked Have you smoked in the past 12 months: No Hx Alcohol Use: No Drug/Substance Use Hx: No Substance Use Type: None <Scotty Mcguire - Last Filed: 12/27/18 14:38> - Past Medical History Allergies/Adverse Reactions: Allergies Allergy/AdvReac Type Severity Reaction Status Date / Time ceftriaxone sodium Allergy Severe Hives Verified 12/26/18 22:07 [From Rocephin] Home Medications: Ambulatory Orders Ampicillin Trihydrate 500 mg PO QID 7 Days #28 capsule 12/27/18 Nitrofurantoin Monohyd/M-Cryst [Macrobid -] 100 mg PO BID 5 Days #10 capsule 08/07 Review of Systems - Review of Systems Able to Perform ROS?: Yes Comments:: 12/26/18 23:06 GENERAL/CONSTITUTIONAL: No fever or chills. No weakness. HEAD, EYES, EARS, NOSE AND THROAT: No change in vision. No ear pain or discharge. No sore throat. CARDIOVASCULAR: No chest pain or shortness of breath. RESPIRATORY: No cough, wheezing, or hemoptysis. GASTROINTESTINAL: No nausea, vomiting, diarrhea or constipation. GENITOURINARY: + Blt suprapubic discomfort. No dysuria, frequency, or change in urination. MUSCULOSKELETAL: No joint or muscle swelling or pain. No neck or back pain. SKIN: No rash NEUROLOGIC: No headache, vertigo, loss of consciousness, or change in strength/ sensation. ENDOCRINE: No increased thirst. No abnormal weight change. HEMATOLOGIC/LYMPHATIC: No anemia, easy bleeding, or history of blood clots. ALLERGIC/IMMUNOLOGIC: No hives or skin allergy. All Other Systems: Reviewed and Negative <Jian Crow - Last Filed: 12/26/18 23:06> *Physical Exam - Vital Signs Last Vital Signs Temp Pulse Resp BP Pulse Ox 98.0 F 77 18 131/68 97 12/26/18 22:05 12/26/18 22:05 12/26/18 22:05 12/26/18 22:05 12/26/18 22:05 - Physical Exam Comments: 12/26/18 23:07 GENERAL: Awake, alert, and fully oriented, in no acute distress HEAD: No signs of trauma ENT: Hearing grossly normal. NECK: Normal ROM. ABDOMEN: +Bilateral suprapubic tenderness. +Diffuse abdominal discomfort. Soft. No guarding, no rebound. No masses PELVIC: + CMT tenderness. No adnexal tenderness. No abnormal vaginal discharge. No vaginal bleeding. Os closed. EXTREMITIES: Normal range of motion, no edema. No clubbing or cyanosis. No cords, erythema, or tenderness NEUROLOGICAL: Cranial nerves II through XII grossly intact. Normal speech. SKIN: Warm, Dry, normal turgor, no rashes or lesions noted. <Jian Crow - Last Filed: 12/26/18 23:06> - Vital Signs Last Vital Signs Temp Pulse Resp BP Pulse Ox 98.0 F 77 18 131/68 97 12/26/18 22:05 12/26/18 22:05 12/26/18 22:05 12/26/18 22:05 12/26/18 22:05 <Scotty Mcguire - Last Filed: 12/27/18 14:38> Moderate Sedation - Procedure Monitoring Vital Signs: Procedure Monitoring Vital Signs Temperature 98.0 F 12/26/18 22:05 Pulse Rate 77 12/26/18 22:05 Respiratory Rate 18 12/26/18 22:05 Blood Pressure 131/68 12/26/18 22:05 O2 Sat by Pulse Oximetry (%) 97 12/26/18 22:05 <Jian Crow - Last Filed: 12/26/18 23:06> - Procedure Monitoring Vital Signs: Procedure Monitoring Vital Signs Temperature 98.0 F 12/26/18 22:05 Pulse Rate 77 12/26/18 22:05 Respiratory Rate 18 12/26/18 22:05 Blood Pressure 131/68 12/26/18 22:05 O2 Sat by Pulse Oximetry (%) 97 12/26/18 22:05 <Scotty Mcguire - Last Filed: 12/27/18 14:38> Heart Score/ECG Review #1 ECG reviewed & interpreted by me at: 02:10 12/27/18 03:09 NSR 60, rightward axis, no std/francia, normal axis, normal intervals, QTC 448 msec <Scotty Mcguire - Last Filed: 12/27/18 14:38> ED Treatment Course - LABORATORY CBC & Chemistry Diagram: 12/26/18 22:25 12/26/18 22:25 - ADDITIONAL ORDERS Additional order review: 12/26/18 22:25 RBC 4.28 MCV 91.5 MCHC 36.2 H RDW 13.0 MPV 8.4 Neutrophils % 66.4 Lymphocytes % 26.9 D Monocytes % 5.5 Eosinophils % 0.9 Basophils % 0.3 <Jian Crow - Last Filed: 12/26/18 23:06> - LABORATORY CBC & Chemistry Diagram: 12/26/18 22:25 12/26/18 22:25 - RADIOLOGY Radiology Studies Ordered: Category Date Time Status ABDOMEN US [US] Stat Ultrasound 12/26/18 22:41 Ordered TRANSVAGINAL US PREG [US] Stat Ultrasound 12/26/18 22:41 Ordered <Scotty Mcguire - Last Filed: 12/27/18 14:38> Medical Decision Making - Medical Decision Making 12/26/18 22:46 A portion of this note was documented by scribe services under my direction. I have reviewed the details of the note, within reason, and agree with the documentation with the following case summary and management plan written by me. Patient treated in the ED. Nursing notes are reviewed and incorporated into the medical decision-making. Vital signs reviewed. Peripheral IV access obtained by the nurse, laboratory studies are drawn and sent, reviewed and interpreted by myself. Vital Signs Temp Pulse Resp BP Pulse Ox 98.0 F 77 18 131/68 97 12/26/18 22:05 12/26/18 22:05 12/26/18 22:05 12/26/18 22:05 12/26/18 22:05 33-year-old female with past medical history migraines, approximately 4-5 weeks by menstrual dates, last menstrual period November 23 presents with lower abdominal discomfort. Patient reports that for approximately 1 week that she's been having this persistent lower abdominal discomfort. Denies dysuria or vaginal discharge or vaginal bleeding. Reports some nausea but denies vomiting. Denies fevers. Patient has not taken any medications. Went to a clinic several days ago and was tested to be positive for but did not get a ultrasound. Differential includes rule out ectopic , threatened , cystitis , other acute abdominal pathology. We'll obtain labs including a beta hCG. We' ll obtain a pelvic exam. We'll obtain a transvaginal and abdominal ultrasound and reassess. Trial Pepcid and Tylenol reassess. 12/26/18 22:59 NEEDLEMAKER exam: Cervical os closed, no discharge or bleeding, but noted to have +CMT. Could this be PID? Prior documentation notes that she had a similar incident and treated as PID. Pt denies hx of STDs. Will obtain a transvaginal ultrasound. 12/27/18 01:16 CBC, BMP 12/26/18 22:25 12/26/18 22:25 CMP Sodium 138 mmol/L (136-145) 12/26/18 22:25 Potassium 3.8 mmol/L (3.5-5.1) 12/26/18 22:25 Chloride 108 mmol/L (98-107) H 12/26/18 22:25 Carbon Dioxide 23 mmol/L (21-32) 12/26/18 22:25 Anion Gap 7 MMOL/L (8-16) L 12/26/18 22:25 BUN 11 mg/dL (7-18) 12/26/18 22:25 Creatinine 0.6 mg/dL (0.55-1.3) 12/26/18 22:25 Creat Clearance w eGFR > 60 (>60) 12/26/18 22:25 Random Glucose 85 mg/dL (74-106) 12/26/18 22:25 Calcium 8.6 mg/dL (8.5-10.1) 12/26/18 22:25 Total Bilirubin 0.2 mg/dL (0.2-1) 12/26/18 22:25 AST 11 U/L (15-37) L 12/26/18 22:25 ALT 28 U/L (13-61) 12/26/18 22:25 Alkaline Phosphatase 66 U/L (45-117) 12/26/18 22:25 Total Protein 7.5 g/dl (6.4-8.2) 12/26/18 22: Albumin 4.3 g/dl (3.4-5.0) 12/26/18 22:25 Lipase 253 U/L (73-393) 12/26/18 22:25 Beta HCG, Quant 7163.1 mIU/ml 12/26/18 22:25 Urine Test Results Urine Color Yellow 12/27/18 00:00 Urine Appearance Slcloudy 12/27/18 00:00 Urine pH 6.0 (5.0-8.0) 12/27/18 00:00 Ur Specific [place] 1.024 (1.010-1.035) 12/27/18 00:00 Urine Protein Negative (NEGATIVE) 12/27/18 00:00 Urine Glucose (UA) Negative (NEGATIVE) 12/27/18 00:00 Urine Ketones Negative (NEGATIVE) 12/27/18 00:00 Urine Blood Negative (NEGATIVE) 12/27/18 00:00 Urine Nitrite Negative (NEGATIVE) 12/27/18 00:00 Urine Bilirubin Negative (<2.0 mg/dL) 12/27/18 00:00 Ur Leukocyte Esterase 3+ (NEGATIVE) H 12/27/18 00:00 12/27/18 01:29 Ultrasound shows: Small intrauterine possible gestational sac 5 weeks 4 days without discrete yolk sac or pole. Advised correlation with serial quantitative beta-hCG and follow up ultrasound. Pt will need to come back in 2 days for repeat beta HCG and ultrasound. Case discussed with Dr. Fine in regards for the 3+ leukocyotes. Given the pelvic findings and 3+ leuks, she initially recommended Ceftriaxone, but pt has allergies to ceftriaxone. Instead, recommended ampicillin. Pt has been ordered for ampicillin for the urine. Pt's abdomen has been re-examined and noted to have persistent lower abdominal pain. After lengthy discussion, pt agrees to take small dose of IV morphine. Pt knows that this medication is a category C drug. Will order MRI abdomen and pelvis to r/o appendicitis and other acute abdominal pathology. 12/27/18 05:48 O positive on blood type. 12/27/18 06:38 Pt signed out to day time team, Dr. Rene, pending MRI. <Scotty Mcguire - Last Filed: 12/27/18 14:38> *DC/Admit/Observation/Transfer - Attestations Scribe Attestion: 12/26/18 23:07 Documentation prepared by Jian Crow, acting as medical educator for Scotty Mcguire MD. <Jian Crow - Last Filed: 12/26/18 23:06> <Scotty Mcguire - Last Filed: 12/27/18 14:38> Diagnosis at time of Disposition: PID (acute pelvic inflammatory disease), Urinary tract infection - Discharge Dispostion Disposition: AGAINST MEDICAL ADVICE Condition at time of disposition: Stable - Prescriptions Prescriptions: Ampicillin Trihydrate 500 mg PO QID 7 Days #28 capsule Nitrofurantoin Monohyd/M-Cryst [Macrobid -] 100 mg PO BID 5 Days #10 capsule - Referrals Referrals: [facility] [place] [facility] at [place] [Provider Group] Robert Moreira MD [Staff Physician] - - Patient Instructions Printed Discharge Instructions: DI for Pelvic Inflammatory Disease, DI for Urinary Tract Infection (UTI) Additional Instructions: You were seen in the ER today for lower abdominal pain. The results of your labs and imaging today showed a urinary tract infection and you likely have an infection, which we will cover with antibiotics. Please take these antibiotics as prescribed. You refused MRI imaging today. Please follow-up with your primary care doctor and OB-NEEDLEMAKER (Dr. Moreira) within 1-2 days to discuss your visit and make sure your symptoms have improved. You will need to come back to the ER in 48 hours to trend your beta-hcg to see the progress of the fetus. Please return to the ER if you have any worsening pain, development of fevers or chills, loss of consciousness, inability to tolerate food or fluids, or any other concerns. Print Language: GEORGIAN
[2018-12-26] MEDS ORDERED: ACETAMINOPHEN INJECTION 100 ML IVPB ONE (22:50)
[2018-12-26 23:17] LABS: HEMATOCRIT 39.1 % (32.4-45.2); HEMOGLOBIN 14.2 GM/dL (10.7-15.3)
[2018-12-26 23:36] LABS: ALBUMIN 4.3 g/dl (3.4-5.0); ALK PHOS 66 U/L (45-117); ANION GAP 7 MMOL/L (8-16); BILIRUBIN,TOTAL 0.2 mg/dL (0.2-1); BLOOD UREA NITROGEN 11 mg/dL (7-18); CALCIUM 8.6 mg/dL (8.5-10.1); CHLORIDE 108 mmol/L (98-107); CO2 23 mmol/L (21-32); CREATININE 0.6 mg/dL (0.55-1.3); GLUCOSE,RANDOM 85 mg/dL (74-106); LIPASE 253 U/L (73-393); POTASSIUM 3.8 mmol/L (3.5-5.1); SGOT/AST 11 U/L (15-37); SGPT/ALT 28 U/L (13-61); SODIUM 138 mmol/L (136-145); TOT PROT 7.5 g/dl (6.4-8.2)
[2018-12-27 01:03] LABS: URINE APPEARANCE SLCLOUDY; URINE BILIRUBIN NEGATIVE (<2.0 mg/dL); URINE COLOR YELLOW; URINE GLUCOSE (UA) NEGATIVE (NEGATIVE); URINE KETONE NEGATIVE (NEGATIVE); URINE LEUK ESTERASE 3+ (NEGATIVE); URINE NITRITE NEGATIVE (NEGATIVE); URINE PROTEIN NEGATIVE (NEGATIVE); URINE UROBILINOGEN NEGATIVE mg/dL (0.2-1.0)
[2018-12-27 01:08] LABS: CALCIUM OXALATE CRYSTALS FEW /hpf (NONE SEEN); EPI CELLS MODERATE /HPF (FEW); URINE BACTERIA RARE /hpf (NONE SEEN); URINE MUCUS RARE
[2018-12-27] MEDS ORDERED: morphine CARPU-JECT 2 MG/1 ML DISP.SYRIN IVPUSH ONE (01:23)
[2018-12-27] MEDS ORDERED: AMPICILLIN SODIUM 250 MG VIAL IVPUSH ONE (01:29)
[2018-12-27] MEDS ORDERED: MORPHINE SULFATE 2 MG/ML VIAL ONE (01:33)
[2018-12-27] MEDS ORDERED: AMPICILLIN SODIUM 500 MG VIAL ONE (01:33)
[2018-12-27 06:33] VITALS: TEMP 98.3
[2018-12-27] MEDS ORDERED: ACETAMINOPHEN 325 MG TABLET (FP) PO ONE (07:39)
--- NOTE | 2018-12-27 07:40 | PDOC ---
*Physical Exam - Vital Signs Last Vital Signs Temp Pulse Resp BP Pulse Ox 98.3 F 70 20 110/71 97 12/27/18 06:31 12/27/18 06:31 12/27/18 06:31 12/27/18 06:31 12/27/18 06:31 ED Treatment Course - LABORATORY CBC & Chemistry Diagram: 12/26/18 22:25 12/26/18 22:25 - ADDITIONAL ORDERS Additional order review: Laboratory Results 12/27/18 12/26/18 12/26/18 00:00 22:25 22:25 Sodium 138 Potassium 3.8 Chloride 108 H Carbon Dioxide 23 Anion Gap 7 L BUN 11 Creatinine 0.6 Creat Clearance w eGFR > 60 Random Glucose 85 Calcium 8.6 Total Bilirubin 0.2 AST 11 L ALT 28 Alkaline Phosphatase 66 Total Protein 7.5 Albumin 4.3 Lipase 253 Beta HCG, Quant 7163.1 Urine Color Yellow Urine Appearance Slcloudy Urine pH 6.0 Ur Specific [place] 1.024 Urine Protein Negative Urine Glucose (UA) Negative Urine Ketones Negative Urine Blood Negative Urine Nitrite Negative Urine Bilirubin Negative Urine Urobilinogen Negative Ur Leukocyte Esterase 3+ H Urine WBC (Auto) 40 Urine RBC (Auto) 5 Ur Epithelial Cells Moderate Calcium Oxalate Crystal Few Urine Bacteria Rare Urine Mucus Rare Blood Type O POSITIVE Antibody Screen Negative 12/26/18 22:25 RBC 4.28 MCV 91.5 MCHC 36.2 H RDW 13.0 MPV 8.4 Neutrophils % 66.4 Lymphocytes % 26.9 D Monocytes % 5.5 Eosinophils % 0.9 Basophils % 0.3 - Medications Given in the ED: ED Medications Discontinued Medications Generic Name Dose Route Start Last Admin Trade Name Alie PRN Reason Stop Dose Admin Acetaminophen 1,000 mg 12/26/18 22:41 12/26/18 23:10 Ofirmev Injection - IVPB 12/26/18 22:42 1,000 mg ONCE ONE Administration Ampicillin Sodium 1,000 mg 12/27/18 01:29 12/27/18 01:42 Ampicillin - IVPUSH 12/27/18 01:30 1,000 mg ONCE ONE Administration Famotidine/Sodium Chloride 20 mg in 50 mls @ 100 mls/hr 12/26/18 22:41 23:11 Pepcid 20 Mg Premixed Ivpb - IVPB 12/26/18 23:10 100 mls/hr ONCE ONE Administration Morphine Sulfate 2 mg 12/27/18 01:23 12/27/18 01:41 Morphine Injection - IVPUSH 12/27/18 01:24 2 mg ONCE ONE Administration Medical Decision Making - Medical Decision Making Pt was signed out to me by Dr. Mcguire, who explained the presentation, ED course, any pending results, and needed interventions. Pending results include MRI. Pt is currently stable and is lying comfortably. 12/27/18 07:37 Pt still complaining of mild pain, providing 650 mg PO tylenol. 12/27/18 07:39 Pt consented for MRI. Explained to the pt the risks and benefits of the scan, and that there is no evidence to suggest either way that there is/is not risk done to the fetus. Consent form provided to nurse. 12/27/18 11:30 Pt refused MRI as topography technician allegedly told pt that MRI is unsafe for fetus during due to radiofrequency. Pt signed AMA forms. Pt advised to follow-up in 48 hours in ER to trend beta-hcg and with OB-ENVIRONMENT COORDINATOR for follow-up. Sent ampicillin (PID) and macrobid (UTI) to pt pharmacy. Return precautions provided. 12/27/18 14:13 *DC/Admit/Observation/Transfer Diagnosis at time of Disposition: PID (acute pelvic inflammatory disease) Urinary tract infection Qualifiers: Urinary tract infection type: site unspecified Hematuria presence: with hematuria Qualified Code(s): N39.0 - Urinary tract infection, site not specified ; R31.9 - Hematuria, unspecified - Discharge Dispostion Disposition: AGAINST MEDICAL ADVICE Condition at time of disposition: Stable Decision to Admit order: No - Prescriptions Prescriptions: Ampicillin Trihydrate 500 mg PO QID 7 Days #28 capsule Nitrofurantoin Monohyd/M-Cryst [Macrobid -] 100 mg PO BID 5 Days #10 capsule - Referrals Referrals: [facility] [place] [facility] at [place] [Provider Group] Robert Moreira MD [Staff Physician] - - Patient Instructions Printed Discharge Instructions: DI for Pelvic Inflammatory Disease, DI for Urinary Tract Infection (UTI) Additional Instructions: You were seen in the ER today for lower abdominal pain. The results of your labs and imaging today showed a urinary tract infection and you likely have an infection, which we will cover with antibiotics. Please take these antibiotics as prescribed. You refused MRI imaging today. Please follow-up with your primary care doctor and OB-ENVIRONMENT COORDINATOR (Dr. Moreira) within 1-2 days to discuss your visit and make sure your symptoms have improved. You will need to come back to the ER in 48 hours to trend your beta-hcg to see the progress of the fetus. Please return to the ER if you have any worsening pain, development of fevers or chills, loss of consciousness, inability to tolerate food or fluids, or any other concerns. Print Language: GUATEMALAN - Post Discharge Activity
[2018-12-27] MEDS ORDERED: ACETAMINOPHEN 325 MG TABLET (FP) ONE (07:44)
--- NOTE | 2018-12-27 11:50 | EKG ---
Test Reason : Blood Pressure : / mmHG Vent. Rate : 060 BPM Atrial Rate : 060 BPM P-R Int : 154 ms QRS Dur : 094 ms QT Int : 448 ms P-R-T Axes : 037 093 040 degrees QTc Int : 448 ms NORMAL SINUS RHYTHM RIGHTWARD AXIS BORDERLINE ECG WHEN COMPARED WITH ECG OF 01-DEC-2017 09:14, NO SIGNIFICANT CHANGE WAS FOUND Confirmed by DANA BERNSTEIN MD ([id number]) on 12/27/2018 11:50:31 AM Referred By: Confirmed By:DANA BERNSTEIN MD
[2018-12-27 12:32] VITALS: BP 110/71; PULSE 78
[2018-12-27] MEDS ORDERED: NITROFURANTOIN MACROCRYSTAL 50 MG CAPSULE (FP) PO SCH (13:45)
[2018-12-27] MEDS ORDERED: NITROFURANTOIN MACROCRYSTAL 50 MG CAPSULE (FP) ONE (13:50)
== END 2018-12-27 14:28 | disposition left against medical advice (07) ==
LOC: JER 22:02
DX: O26.891 Other specified pregnancy related conditions, first trimester (principal); O23.591 Infection of other part of genital tract in pregnancy, first trimester; O23.31 Infections of other parts of urinary tract in pregnancy, first trimester; Z3A.01 Less than 8 weeks gestation of pregnancy
CPT/HCPCS: 36415; 76705-TC; 76817-TC; 80053; 81003; 81015; 83690; 84702; 85025; 86850; 86900; 86901; 87086; 87186; 93005; 93010; 99283-25; J0131

== ENCOUNTER 2019-09-03 09:37 | Inpatient (IN) | payer OTHER ==
[2019-09-03] MEDS ORDERED: CLINDAMYCIN PHOSPHATE 600 MG/4 ML VIAL ONE ×2 (12:46→18:15)
[2019-09-03] MEDS ORDERED: CLINDAMYCIN 900 MG PREMIX IVPB 900 MG/50 ML BAG IVPB ONE (13:00)
[2019-09-03 13:26] VITALS: BMI 30.3
[2019-09-03] MEDS ORDERED: ELECTROLYTE-148 SOLN 1,000 ML IV SCH (13:30)
[2019-09-03 13:55] LABS: BASO % 0.3 % (0-2.0); EOS % 0.3 % (0-4.5); HEMATOCRIT 35.6 % (32.4-45.2); HEMOGLOBIN 11.8 GM/dL (10.7-15.3); LYMPH % 28.7 % (8-40); MCH 28.5 pg (25.7-33.7); MEAN CELL VOLUME 86.4 fl (80-96); MEAN PLT VOLUME 8.6 fl (7.5-11.1); MONO % 4.4 % (3.8-10.2); NEUT % 66.3 % (42.8-82.8); PLATELET COUNT 404 K/MM3 (134-434); RBC 4.12 M/mm3 (3.60-5.2); RDW 14.1 % (11.6-15.6); WHITE BLOOD COUNT 7.7 K/mm3 (4.0-10.0)
[2019-09-03 14:13] LABS: INR 0.92 (0.83-1.09); PROTHROMBIN TIME (PATIENT) 10.8 SEC (9.7-13.0)
[2019-09-03 14:15] LABS: ACTIVATED PTT 28.8 SECONDS (25.2-36.5)
[2019-09-03] MEDS ORDERED: DINOPROSTONE 10 MG VAGINAL SUPPOSITORY VG ONE (14:16)
[2019-09-03 14:19] LABS: BLOOD UREA NITROGEN 7.5 mg/dL (7-18); CALCIUM 8.8 mg/dL (8.5-10.1); CREATININE 0.5 mg/dL (0.55-1.3); POTASSIUM 4.1 mmol/L (3.5-5.1)
--- NOTE | 2019-09-03 14:25 | HP ---
Past Medical History - Primary Care Physician PCP:: Robert Moreira - Admission Chief Complaint: 41 weeks, for induction of labor History of Present Illness: 33 yo f g 4 [id number] 41 weeks admitted for cervidil induction, cx 3 cm 50 vx -3 mi, fhr cat 1, no contraction, GBS positve, cervidil induction discussed , risks and ulternatives explained History Source: Patient - Past Medical History ...: 4 ...Para: 3 ...Term: 3 ...: 0 ...Spon : 0 ...Induced : 0 ...Multiple Gestation: 0 ...LMP: 11/23/18 ... Weeks Gestation by Dates: 40.4 ...EDC by Dates: 08/30/19 ...EDC by Sono: 08/26/19 ENT: Yes: Other Dermatology: Yes: Other (hives noted post dose of Ceftriaxone) - Past Surgical History Hx Myomectomy: No Hx Transabdominal Cerclage: No - Smoking History Smoking history: Never smoked Have you smoked in the past 12 months: No - Alcohol/Substance Use Hx Alcohol Use: No - Social History Usual Living Arrangement: Yes: With Spouse ADL: Independent History of Recent Travel: No Home Medications - Allergies Allergies/Adverse Reactions: Allergies Allergy/AdvReac Type Severity Reaction Status Date / Time ceftriaxone sodium Allergy Severe Hives Verified 09/03/19 12:03 [From Rocephin] - Home Medications Home Medications: Ambulatory Orders Ampicillin Trihydrate 500 mg PO QID 7 Days #28 capsule 12/27/18 Nitrofurantoin Monohyd/M-Cryst [Macrobid -] 100 mg PO BID 5 Days #10 capsule 08/07 Sulfamethoxazole/Trimethoprim [Bactrim Ds -] 1 tab PO BID #14 tablet 12/30/18 Review of Systems - Review of Systems Constitutional: reports: No Symptoms Eyes: reports: No Symptoms HENT: reports: No Symptoms Neck: reports: No Symptoms Cardiovascular: reports: No Symptoms Respiratory: reports: No Symptoms Gastrointestinal: reports: No Symptoms Genitourinary: reports: No Symptoms Breasts: reports: No Symptoms Reported Musculoskeletal: reports: No Symptoms Integumentary: reports: No Symptoms Neurological: reports: No Symptoms Endocrine: reports: No Symptoms Psychiatric: reports: No Symptoms Physical Exam - Maternity Vital Signs: Vital Signs Temperature 98.1 F 09/03/19 12:30 Pulse Rate 88 09/03/19 12:30 Respiratory Rate 18 09/03/19 12:30 Blood Pressure 108/74 09/03/19 12:30 O2 Sat by Pulse Oximetry (%) Constitutional: Yes: Well Nourished, No Distress, Calm Eyes: Yes: WNL, Conjunctiva Clear, EOM Intact HENT: Yes: WNL, Atraumatic, Normocephalic Neck: Yes: WNL, Supple, Trachea Midline Cardiovascular: Yes: WNL, Regular Rate and Rhythm Breast(s): Yes: WNL - Abdominal Exam/OB Fundal Height: 40 Number of Fetuses: Single Presentation: Vertex Contractions: No Intensity: Unaware Monitor Mode: External Category: I Accelerations: Non-Uniform Decelerations: None - Vaginal Exam/OB Vaginal Bleediing: No Speculum Exam: No Dilatation (cm): 3 cm Effacement (%): 50 Amniotic Membrane Status: Intact - Physical Exam Musculoskeletal: Yes: WNL Edema: Yes Edema: LLE: Trace, RLE: Trace Deep Tendon Reflex Grade: Normal +2 Psychiatric: Yes: WNL - Labs Lab Results: CBC, BMP 09/03/19 13:00 Problem List - Problems (1) with 41 completed weeks gestation Code(s): Z3A.41 - 41 WEEKS GESTATION OF (2) Failed induction of labor Problems reviewed: No Code(s): O61.9 - FAILED INDUCTION OF LABOR, UNSPECIFIED (3) Encounter for elective induction of labor Code(s): Z34.90 - ENCNTR FOR SUPRVSN OF NORMAL , UNSP, UNSP TRIMESTER Assessment/Plan admit for cervidil induction, risks discussed
[2019-09-03] MEDS: CLINDAMYCIN 600MG PREMIX IVPB 600 MG/50 ML BAG IVPB SCH (18:28)
[2019-09-03] MEDS ORDERED: PROMETHAZINE HCL 25 MG/1 ML VIAL ONE (20:10)
[2019-09-03] MEDS ORDERED: BUTORPHANOL TARTRATE 1 MG/ML VIAL ONE ×2 (20:10)
[2019-09-03] MEDS ORDERED: PROMETHAZINE HCL 25 MG/1 ML VIAL IVPB ONE (20:15)
[2019-09-03] MEDS ORDERED: BUTORPHANOL TARTRATE 2 MG/ML VIAL IVPB ONE (20:15)
[2019-09-03] MEDS ORDERED: OXYTOCIN 20 UNITS in 0.9% NS 20 UNIT/1,000 ML INFUS.BAG IV ONE (21:21)
[2019-09-03] MEDS ORDERED: LIDOCAINE HCL 1% PRESERVATIVE FREE - 30ML VIAL ONE (21:22)
[2019-09-03] MEDS ORDERED: BENZOCAINE 20% 57 GM BOTTLE TP PRN (21:36)
[2019-09-03] MEDS ORDERED: BENZOCAINE 28 GM HEMORRHOIDAL OINTMENT TP PRN (21:36)
[2019-09-03] MEDS ORDERED: WITCH HAZEL 50% (TUCKS) 40 PAD/JAR PAD TP PRN (21:36)
[2019-09-03] MEDS ORDERED: BISACODYL 10 MG SUPP.RECT RC PRN (21:36)
[2019-09-03] MEDS ORDERED: METHYLERGONOVINE MALEATE 0.2 MG/1 ML AMP IM PRN (21:36)
--- NOTE | 2019-09-03 21:43 | PN ---
Delivery - Delivery Vaginal Delivery: Spontaneous Type of Anesthesia: None (cx fully dilated ,head delivered , nasopharynx suctioned , cord around neck once reduced , derrell, ant. post shoulder with no difficulty . live baby boy 9/9 , placenta complete , no laceration, no complication) Delivery, Single - [place] Feeding Plan Initial Plan: Elected not to breastfeed exclusively throughout hospitalization
[2019-09-03] MEDS ORDERED: D5W-LR W/ 20 UNITS OXYTOCIN 20 UNIT/1,000 ML INFUS.BAG IV SCH (21:45)
[2019-09-04] MEDS: CLINDAMYCIN 600MG PREMIX IVPB 600 MG/50 ML BAG IVPB SCH (01:39)
[2019-09-04 07:19] LABS: BASO % 0.2 % (0-2.0); HEMATOCRIT 32.9 % (32.4-45.2); MCH 28.5 pg (25.7-33.7); MCHC 33.4 g/dl (32.0-36.0); MEAN CELL VOLUME 85.4 fl (80-96); MEAN PLT VOLUME 8.3 fl (7.5-11.1); MONO % 6.3 % (3.8-10.2); NEUT % 74.5 % (42.8-82.8); PLATELET COUNT 380 K/MM3 (134-434); RBC 3.85 M/mm3 (3.60-5.2); RDW 14.3 % (11.6-15.6); WHITE BLOOD COUNT 11.9 K/mm3 (4.0-10.0)
[2019-09-04] MEDS: ACETAMINOPHEN 325 MG TABLET (FP) PO PRN ×2 (07:32→18:06)
[2019-09-04] MEDS: IBUPROFEN 600 MG TABLET (FP) PO PRN ×2 (07:33→18:05)
[2019-09-04] MEDS: FERROUS SO4 325 MG TABLET (FP) PO SCH ×2 (08:45→17:14)
[2019-09-04] MEDS: PRENATAL VITAMINS W/ FOLIC ACID TABLET (FP) PO SCH (09:50)
[2019-09-04 20:56] VITALS: TEMP 97.9
[2019-09-04] MEDS ORDERED: SENNOSIDES/DOCUSATE COMBO (SENNA PLUS) TABLET (UD) PO PRN (22:00)
[2019-09-05] MEDS: ACETAMINOPHEN 325 MG TABLET (FP) PO PRN (07:56)
[2019-09-05] MEDS: IBUPROFEN 600 MG TABLET (FP) PO PRN (07:56)
[2019-09-05] MEDS: FERROUS SO4 325 MG TABLET (FP) PO SCH (07:56)
[2019-09-05 08:24] VITALS: BP 115/59; PULSE 77
--- NOTE | 2019-09-05 10:01 | DS ---
Physical Exam-MANAGER COMPLIANCE Vital Signs: Vital Signs Temperature 97.9 F 09/05/19 08:23 Pulse Rate 77 09/05/19 08:23 Respiratory Rate 20 09/05/19 08:23 Blood Pressure 115/59 L 09/05/19 08:23 O2 Sat by Pulse Oximetry (%) 100 09/03/19 22:30 Constitutional: Yes: Well Nourished, No Distress, Calm Eyes: Yes: WNL, Conjunctiva Clear, EOM Intact HENT: Yes: WNL, Atraumatic, Normocephalic Neck: Yes: WNL, Supple, Trachea Midline Cardiovascular: Yes: WNL, Regular Rate and Rhythm Respiratory: Yes: WNL, Regular, CTA Bilaterally Gastrointestinal: Yes: WNL ...Rectal Exam: Yes: WNL Renal/: Yes: WNL ....Post : Yes: Uterus firm, Uterus non-tender, Slight lochia rubra Breast(s): Yes: WNL Musculoskeletal: Yes: WNL Extremities: Yes: WNL Edema: No Integumentary: Yes: WNL Neurological: Yes: WNL, Alert, Oriented ...Motor Strength: WNL Psychiatric: Yes: WNL, Alert, Oriented Labs: CBC, BMP 09/04/19 06:56 09/03/19 13:00 Delivery - Delivery Vaginal Delivery: Spontaneous Type of Anesthesia: None Episiotomy/Laceration: None EBL (cc): 300 Delivery, Single - Stages of Labor Date 1st Stage Initiatied: 09/03/19 Time 1st Stage Initiated: 20:00 Date 2nd Stage Initiated: 09/03/19 Time 2nd Stage Initiated: 21:20 Date of Delivery: 09/03/19 Time of Delivery: 21:28 Time Placenta Delivered: 21:30 Placenta: Yes: Spontaneous - Condition of Paraoptometric/Makeup Sales Advisor Present: No Gender: Male Weight: 9 lb 8 oz Position: Left, OA Total Hours ROM (Hrs/Mins): 2m - 1 Minute Total Score: 9 5 Minutes Total Score: 9 - [place] Feeding Plan Initial Plan: Elected not to breastfeed exclusively throughout hospitalization Discharge Summary Reason For Visit: LABOR ADMISSION Current Active Problems Encounter for elective induction of labor (Acute) Failed induction of labor (Acute) with 41 completed weeks gestation (Acute) Procedures: Principal: Hospital Course: no complication Condition: Good - Instructions Diet, Activity, Other Instructions: regular diet, no intercourse, if fever, pain , heavy vaginal bleeding call MD follow up [facility] care 4 weeks Referrals: Robert Moreira MD [Staff Physician] - Disposition: HOME - Home Medications Comprehensive Discharge Medication List: Ambulatory Orders Pnv No.95/Ferrous Fum/Folic AC [ Formula] 1 each PO DAILY 09/03/19 Ibuprofen [Motrin -] 600 mg PO QID #28 tablet 09/04/19
[2019-09-05] MEDS: PRENATAL VITAMINS W/ FOLIC ACID TABLET (FP) PO SCH (11:03)
== END 2019-09-05 13:00 | disposition home or self-care (01) | DRG 560 ==
LOC: JDEL 09:37 → JLDR 11:50 → J3W 09-04 01:19
PROVIDERS: ADMIT Obstetrics & Gynecology; ATTEND Obstetrics & Gynecology
PROC: 10E0XZZ Delivery of Products of Conception, External Approach (ICD-10-PCS; principal; 2019-09-03)
DX: O48.0 Post-term pregnancy (principal); Z3A.41 41 weeks gestation of pregnancy; O61.9 Failed induction of labor, unspecified; O69.81X0 Labor and delivery complicated by cord around neck, without compression, not applicable or unspecified; O99.824 Streptococcus B carrier state complicating childbirth; Z37.0 Single live birth
CPT/HCPCS: 36415; 36600; 59025; 59409; 80048; 82803; 85025; 85610; 85730; 86593; 86850; 86900; 86901